=== PATIENT | male | born 1990 ===

== ENCOUNTER 2023-06-20 11:31 | Outpatient (REF) | payer MEDICAID, SELFPAY ==
[2023-06-20 13:49] LABS: MANUAL DIFF FLAG NO
[2023-06-20 13:50] LABS: Basophils Absolute Auto 0.1 X10*3/uL (0.0-0.2); Basophils Percent Auto 0.8 % (0-2); Eosinophils Absolute Auto 0.1 X10*3/uL (0.0-0.4); Hematocrit 43.6 % (42.0-52.0); Hemoglobin 15.3 g/dl (14.0-18.0); Imm Gran Abs Auto 0.01 X10*3/uL (0.00-0.03); Imm Gran Pct Auto 0.2 % (0.0-0.4); Lymphocytes Absolute Auto 2.9 X10*3/uL (1.2-4.9); Lymphocytes Percent Auto 44.2 % (20-40); Mean Corpuscular HGB Conc 35.1 g/dl (31.0-36.0); Mean Corpuscular Hemoglobin 30.1 pg (27.0-33.0); Mean Corpuscular Volume 85.7 fL (80.0-98.0); Mean Platelet Volume 10.3 fL (9.4-12.4); Monocytes Absolute Auto 0.5 X10*3/uL (0.1-1.2); Monocytes Percent Auto 8.1 % (2-11); Neutrophils Absolute Auto 2.9 x10*3/uL (2.0-8.3); Neutrophils Percent Auto 44.7 % (45-73); Platelet Count 299 X10*3/uL (160-400); Red Blood Count 5.09 X10*6/uL (4.60-5.80); Red Cell Distribution Width 12.3 % (11.0-16.0); White Blood Count 6.5 X10*3/uL (4.8-10.8)
[2023-06-20 14:44] LABS: TSH reflex Free T4 0.73 uIU/mL (0.32-4.0)
[2023-06-21 09:19] LABS: HIV AB/AG Nonreactive (Nonreactive); HIV Num 1 0.05 S/CO (0.00-0.99)
[2023-06-22 10:23] LABS: RPR Rapid Plasma Reagin NON-REACTIVE (NON-REACTIVE)
[2023-06-23 07:43] LABS: TS Negative Control Passed; TS Panel A 0; TS Panel B 0; TS Positive Control Passed; TSpotTB Negative (Negative)
== END 2023-06-20 11:32 | disposition home or self-care (01) ==
LOC: HO.HHCL 11:31
PROVIDERS: Visit Provider Internal Medicine
DX: R59.1 Generalized enlarged lymph nodes (principal)
CPT/HCPCS: 36415; 84443; 85025; 86481; 86592; 87389

== ENCOUNTER 2023-11-09 09:53 | Outpatient (REF) | payer MEDICAID, SELFPAY ==
[2023-11-09 11:38] LABS: Estimated Average Glucose 108 mg/dL; Hemoglobin A1c % 5.4 % (<6.0)
[2023-11-09 11:57] LABS: Alanine Aminotransferase 42 U/L (0-40); Albumin Level 4.5 g/dL (3.5-5.0); Alkaline Phosphatase 70 U/L (39-117); Anion Gap 11 (12-20); Aspartate Amino Transferase 33 U/L (5-37); Bilirubin Total 0.5 mg/dL (0.0-1.0); Blood Urea Nitrogen 17 mg/dL (9-16); Calcium 9.6 mg/dL (8.4-10.2); Carbon Dioxide 26 mmol/L (22-29); Chloride 107 mmol/L (96-108); Estimated Glomerular Filt Rate > 60; Glucose Random 87 mg/dL (60-115); Sodium 140 mmol/L (135-145); Total Protein 7.3 g/dL (6.5-8.0)
[2023-11-09 12:38] LABS: CT PCR NOT DETECTED (Not Detect.); NG PCR NOT DETECTED (Not Detect.)
[2023-11-10 04:33] LABS: HBc Num1 0.12 S/CO (0.00-0.79); Hepatitis B Core Antibody Nonreactive (Nonreactive); Hepatitis B Surface Antigen Negative (Negative); ~HepC Num1 0.09 S/CO (0.00-0.79); ~Hepatitis B Surface Antibody REACTIVE (Nonreactive); ~Hepatitis C Antibody Nonreactive (Nonreactive)
== END 2023-11-09 09:54 | disposition home or self-care (01) ==
LOC: HO.HHCL 09:53
PROVIDERS: Visit Provider Student in an Organized Health Care Education/Training Program
DX: Z13.89 Encounter for screening for other disorder (principal)
CPT/HCPCS: 80053; 83036; 86704; 86706; 86803; 87340; 87491; 87591

== ENCOUNTER 2024-01-19 14:18 | Outpatient (REF) | payer MEDICAID, SELFPAY | END 2024-01-19 14:19 | disposition home or self-care (01) | LOC: HO.HHCX 14:18 | PROVIDERS: Visit Provider Nurse Practitioner | DX: Z13.89 Encounter for screening for other disorder (principal) ==

== ENCOUNTER 2024-01-19 14:20 | Outpatient (REF) | payer SELFPAY ==
--- NOTE | ~2024-01-19 | XR_ITS ---
EXAMINATION: XR THORACIC SPINE CLINICAL INFORMATION: Acute left-sided back pain COMPARISON: None available. TECHNIQUE: 3 views of the thoracic spine were obtained. FINDINGS: There is no fracture or bone destruction seen and the vertebral alignment is normal. There is no disc space narrowing. There is no abnormality of the paraspinal soft tissues. XR/XR thoracic spine 2V IMPRESSION: Unremarkable examination. Electronically signed by: Tulio Sanchez DO 01/20/2024 09:58 AM [facility]
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
== END 2024-01-19 14:21 | disposition home or self-care (01) ==
LOC: HO.HHCX 14:20
PROVIDERS: Visit Provider Nurse Practitioner
DX: M54.2 Cervicalgia (principal); M54.42 Lumbago with sciatica, left side
CPT/HCPCS: 72040; 72070

== ENCOUNTER 2024-02-17 08:02 | Outpatient (REF) | payer SELFPAY | END 2024-02-17 08:03 | disposition home or self-care (01) | LOC: HO.HOSX 08:02 | DX: M25.522 Pain in left elbow (principal); R22.32 Localized swelling, mass and lump, left upper limb | CPT/HCPCS: 73080; 99212 ==

== ENCOUNTER 2024-02-17 09:03 | Outpatient (AMB) | payer MEDICAID, SELFPAY ==
--- NOTE | 2024-02-17 09:09 | MHC.OFFVIS ---
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 The patient states that when he first noticed this mass, it was very small and nonpainful, but over time it grew and gradually started to cause him discomfort, until approximately 6 months ago when he had to discontinue going to the gym due to the pain. 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 Denies any numbness or tingling in the LUE. No other acute complaints or concerns at this time. 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 Review of Systems Const All systems reviewed & are unremarkable except as noted in HPI and below Physical Exam Vital Signs: BMI result Body Mass Index 27.9 Extrem Other: On inspection, there is a focal area of enlargement on the patient's L elbow, proximal to the olecranon process No erythema or ecchymosis noted No lacerations, abrasions, open areas No evidence of infection There is a firm, slightly mobile mass noted to palpation of the patient's L arm, just proximal to the olecranon process of the L elbow Mild tenderness to palpation of this mass Patient is able to flex the elbow to approximately 140 degrees and extend to 0 degrees, but reports some discomfort when doing so Pronation and supination full and intact Results Reviewed Results Reviewed: X-rays obtained in the office today and independently reviewed by me, Abhijeet Ellison PA-C, demonstrate no fracture or acute bony abnormality of the left elbow MRI of the left elbow demonstrates hyperintense mass just dorsal and proximal to the olecranon process that is not consistent with a lipoma or simple cyst. Assessment & Plan Assessment & Plan (1) Mass of left elbow: Code(s): R22.32 - Localized swelling, mass and lump, left upper limb Category: Medical Plan 1. Mass of left elbow Present for 3 years Patient is seen and evaluated with Dr. Page, and a collaborative treatment plan was formed At this time, patient was informed that we will be reaching out to General surgery to see what their thoughts are on this mass and if a biopsy is necessary Patient was amenable to this plan We will reach out to the patient once we hear from general surgery with regards to what their thoughts are on this mass Patient is also amenable to this Orders: Orders XR elbow LT min 3V Today M25.522 - Pain in left elbow Coding Level of Care Code New Pt Level 3 (91506) Diagnoses Mass of left elbow R22.32
[2024-02-17 09:14] VITALS: BMI 27.9
== END 2024-02-17 10:15 | disposition home or self-care (01) ==
PROVIDERS: PCP Family Medicine
DX: R22.32 Localized swelling, mass and lump, left upper limb (principal)
CPT/HCPCS: 99203

== ENCOUNTER 2024-04-19 12:17 | Outpatient (AMB) | payer MEDICAID, SELFPAY ==
[2024-04-19 12:18] VITALS: BMI 27.9
--- NOTE | 2024-04-19 12:18 | A.OFFVIS_ITS ---
Vital Signs 04/19/24 12:18 Height 5 ft 9 in Weight 189 lb BMI 27.9 Intake Visit Reasons: OV-Right Elbow Mass-follow up Intake Note: Arturo is a 33 year old right hand dominant male who presents today for a follow up of a left elbow mass. Curvilinear low T1 and hyperintense T2 fat-sat signal within the cutaneous soft tissues dorsally and proximal to the olecranon is nonspecific and does not reflect simple cyst or lipoma. Measurements as above. Clinical management of this palpable abnormality is recommended. measures approximately 2.8 cm in transverse dimension and 2.1 cm in craniocaudad dimension and 4 mm in AP dimension (axial series 7, images 17 through 23). Allergies No Known Allergies [No Known Allergies*] Allergy (Unverified 02/17/24 09:17) HPI HPI OV-Right Elbow Mass-follow up: Details: Arturo comes to see me today for his LEFT elbow. His MRI report was scanned in as his right elbow but it is of his LEFT elbow. He describes discomfort with weightlifting. He states when he was doing aggressive weightlifting he had more discomfort. He does not notice some occasional swelling in the posterior aspect of his left distal triceps. The MRI report describes fluid here but is not concerning for mass or growth or extension into deeper compartments. He has full range of motion of his left elbow. He denies numbness and tingling. 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 This is not particularly tender and he has full range of motion. It is consistent with a small amount of bursal fluid. Assessment & Plan Assessment & Plan (1) Olecranon bursitis of left elbow: Code(s): M70.22 - Olecranon bursitis, left elbow Category: Medical Plan: This is nonspecific fluid on MRI that is not causing symptoms. He is a little worried about it but I reviewed the MRI with him and no intervention is warranted. He is welcome to follow up with me in a year and we can reassess or if he feels there is any change but at this time no intervention warranted. Coding Level of Care Code Est Pt Level 3 (89342) Diagnoses Olecranon bursitis of left elbow M70.22
--- OUTSIDE RECORDS SUMMARY | 2024-04-19 12:20 | XMS_ITS | Encounter Summary ---
Author Organization [employer] Address [address] [place] [address] [address] [place] [address] Care Team Providers Care Card Player Name Role Phone Mira Timmons MD Primary Care Pro vider Reason for Visit * Reason Onset Date Comments Letter for School/Work 01/20/2024 Encounter Details Date Type Department Care Team ([facility] Contact Info) Description 01/20/2024 Telephone [facility] [address], [place] [id number] Mira Timmons MD [address] [place] [address] Letter for School/Work Social History Tobacco Use Types Packs/Day Years Used Date Smoking Tobacco: Every Day Cigarettes Passive Smoke Exposure: Current Smokeless Tobacco: Never Comments:Started smoking at 12 y of age now vaping for the last year, so smoking now for 20 years , max 1 PQT a day ,now vaping 1 cartridge for 5 days Alcohol Use Standard Drinks/Week Comments Yes 0 (1 standard drink = 0.6 oz pur e alcohol) social Depression Answer Date Recorded Patient Health Questionnaire-9 Score 7 09/20/2023 Patient Health Questionnaire-9 Score 7 09/20/2023 Last PHQ-9: Questionnaire Data Not on file 0 09/20/2023 Housing Stability Answer Date Recorded What is your housing situation today? I have missy caal 09/12/[address] you li ve. Do you have problems with any of the following? None of the above 09/12/2023 Food Insecurity Answer Date Recorded Within the past 12 months, y ou worried that your food would run out before you got money to buy more: Never True 09/12/2023 Within the past 12 months,th e food you bought just didn't last and you didn't have enough money to get more: Never True 03/2023 Transportation Answer Date Recorded In the past 12 months, has l ack of transportation kept you from medical appts, meetings, work or from getting things needed for daily living? No 09/12/2023 Utilities Answer Date Recorded In the past 12 months, has t he electric, gas, oil or water company threatened to shut off services in your home? No 09/12/2023 Depression Answer Date Recorded Patient Health Questionnaire-2 Score 3 09/20/2023 Internet Access Answer Date Recorded Internet Access Q1 Yes 11/11/2023 Internet Access Q2 Not on file 11/11/2023 Sex and Gender Information Value Date Recorded Sex Assigned at Male 01/11/2022 10:17 AM EDT Legal Sex Male 10:17 AM EDT Gender Identity Male 01/11/2022 10:17 AM EDT Sexual Orientation Straight 09/20/2023 10 :36 AM EDT documented as of this encounter Miscellaneous Notes * Telephone Encounter - Padma Rosales NP - 01/20/2024 4:17 PM EST I told him he could be out of work for 1 week, so you can put return date of 01/26/24 * Telephone Encounter - Elizabeth Mullen - 01/20/2024 4:08 PM EST Tc from pt requesting excuse letter for work to be updated with an exact return date. Pt was seen yesterday 01/19/24 at [facility]. Letter had been generated. Please contact at [phone] documented in this encounter Plan of Treatment Not on file documented as of this encounter Visit Diagnoses Not on filedocumented in this encounter Additional Health Concerns Assessment Noted Time PHQ-9 Depression Total Score: 7 09/20/19 24 10:06 AM EDT documented as of this encounter Care Teams Card Player Relationship Specialty Start Date End Date Mira Timmons MD [address] [place] [id number] PCP - General Internal Medicine 06/24/22 documented as of this encounter
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
--- OUTSIDE RECORDS SUMMARY | 2024-04-19 12:20 | XMS_ITS | Data Portability ---
Author Organization [facility] [employer] [facility], , [place] Address [address] [place] [address] Assessment Encounter Date Assessment Date Assessment LastModified by Organization Details LastModified Time 03/09/2018 03/09/2018 The patient's cu rrent phase of treatment is Stabilization OUD The patient does meet diagnostic criteria for alcohol dependence. Will proceed with MAT oral naltrexone at recommended dose, see order. Referrals made today include substance abuse counselingCOUNSELED NOT TO TAKE ANY NALTREXONE RATHER TO BRING IT UNOPENED HERE AND WE'LL GIVE HIM THE FIRST DOSE. A urine drug screen is ordered, with confirmation if positive. See drug screen and medical necessity below. Initial lab studies ordered include HCG (female), CBC with differential, Comprehensive metabolic, Hepatic panel, coag, Hep B, C, and HIV. The patient accepts the suggested e-prescription of comfort medication. The patient is counseled re short term goal of harm reduction and the fci goal of abstinence. Education and counseling provided at the comprehensive addiction initial assessment included: Education re medication assisted treatment options. Education re risks and benefits of both MAT options: buprenorphine and naltrexone. If proceeding with buprenorphine, prior to induction with buprenorphine patient is to abstain from short acting opioids 12-24 hours and long acting opioids 72 hours (methadone < 30 mg/day). If proceeding with naltrexone, prior to induction with naltrexone the patient is to abstain from any opioids 7-10 days and until provider has deemed UDS appropriate to proceed. Reviewed Program Expectations at length. Education provided re best way to take medication. Patient was instructed to bring RX bottle to every visit. Education provided re common and serious side effects of buprenorphine and naltrexone. Discussed safe keeping of RX including lock box. Consents and contracts reviewed and signed with patient. Discussed rationale and requirement of psychotherapy to support recovery. Reviewed process of UDS and random visit requirements. Discussed the expectation for building trusting relationship to promote a successful recovery. Reviewed that diversion or misuse of medication will not be tolerated and is cause for dismissal from the program. Instructed to bring in counseling verification to each appointment. 91125 Medical Necessity UDS is ordered today for a routine presumptive screen. Results will be confirmed to assess those illicit substances showing positive on the presumptive screen, the substance dependency and the effectiveness of treatment. A Qualitative Urine Drug screening may include the following substances: amphetamines, benzodiazepines, buprenorphine, cocaine metabolites, ethanol, methadone, opiates, oxycodone, fentanyl and THC. This patient has an extraordinarily high pretest probability of current positive illicit substance use given the previously documented substance use pattern (see Initial visit, follow up visits and past medical/social history) in addition to a history of longstanding substance dependence. G0480 Medical Necessity Definitive/quantitati ve drug testing may be ordered due to the unexpected drug test results from the presumptive/qualitati ve drug test ordered at the patient visit. This test may include confirming the presence of an illicit substance in one or more of the following drug classes: amphetamines, benzodiazepines, buprenorphine, cocaine metabolites and opiates or for the lack of a prescribed substance. The results of the definitive test are required to assess the patient? s substance use dependency and the effectiveness of the treatment. Specimen validity testing is performed to ensure the integrity of the [place]. [place] [address] [place] [address] or negative for buprenorphine. G0481 Medical Necessity Definitive/quantitati ve drug testing may be ordered due to the unexpected drug test results from the presumptive/qualitati ve drug test ordered at the patient? s Initial or Re-Initial visit. This test may include confirming the presence of an illicit substance in one or more of the following drug classes: Opiates, Cocaine, Benzos, Amphetamines, Gabapentin, Pregabalin, Zolpidem, Tramadol, Methylphenidate or for the lack of a prescribed substance. The results of the definitive test are required to assess the patient? s substance use dependency and the effectiveness of the treatment. Specimen validity testing is performed to ensure the integrity of the sample. [place] [address] is positive for Opiates and at least one other class in combination. MONTHLY BUPRENORPHINE/NORBUPR ENORPHINE LEVEL TESTING Definitive test is performed monthly and at random to ensure the presence of the metabolite, not just buprenorphine; in addition, this patient has an extraordinarily high pretest probability of low buprenorphine levels on the analyzer results, missed visits, concern for compliance and diversion, given the previously documented substance use pattern (see Initial visit, follow up visits and past medical/social history) in addition to a history of long standing substance dependence. Specimen validity testing is performed to ensure the integrity of the sample. (Female patients) Monthly qualitative rapid urine HCG testing performed to monitor and screen for . This test is deemed medically necessary as an early identification of in this individual who has a high pretest probability of return to fertility, given the previously documented substance use pattern (see initial visit, follow up visits and past medical history). Early identification and referral for care is vital for healthier maternal and outcomes. Greater than 50% of today's visit was spent counseling and coordinating care. [email or web address] Not available 03/09/2018 16:03:43 Plan of Treatment Reminders Order Date Submit Date Provider Last Modified By Organization Details Last Modified Time Details Appointments None recorded. Lab CBC w/ diff 2017 Charlie charles [facility], [address], [address], 9 14:10:09 gamma-glut amyl transferas e (ggt), serum 2017 [facility], [address], [place], [address], 9 14:10:09 hepatic function panel, serum 2017 Charlie charles [facility], [address], [address], 9 14:10:09 hepatitis A Ab, total, serum 2017 018 charles [facility], [address], [address], 9 11:37:01 HBsAg (hepatitis B surface Ag), serum 12/2017 charles [facility], [address], [facility], [place], [address], 9 11:37:01 drug screen, urine 2017 [facility], [address] [place], [address], 8 06:56:13 HIV 1+2 Ab + HIV1 p24 Ag, QL, rapid, immunoassa y, serum or plasma or blood 2017 [place] [address] [facility], [address], [facility], [place], [address], 9 17:00:25 hepatitis C RNA, viral load, PCR, serum 2017 [place] [address] [facility], [address], [facility], [place], [address], 9 17:00:26 Referral None recorded. Procedures None recorded. Surgeries None recorded. Imaging None recorded. Medication Orders naltrexone 50 mg tablet 2017 INTERFACE [id number], [address] [place], [address], 8 15:59:19 Patient TargetsNo targets recorded. Patient Instructions Encounter Date Encounter Id Patient Instructions Last Modified By Organization Details Last Modified Time 03/09/2018 [id number] Abstain from opiates for 24 hours unless directed by provider; If already taking buprenorphine, do not take a dose the day of the induction until you are in the office with your provider; Comfort medications were recommended. If accepted, please take as prescribed to support your ability to abstain from opiates until your buprenorphine induction; Keep your buprenorphine RX package closed until you are seen by your provider for induction unless otherwise directed; If you have problems abstaining from opiates, please call the office. As part of your individualized treatment plan and program requirement, you will need to bring your correct prescription bottle and all used and unused medication and counseling verification to each appointment; agree to participate in counseling and bring counseling verification to each appointment; Agree to present for random visits and agree to not falsify your urine specimens. [email or web address] Not available 03/09/2018 15:22:05 Education provid ed at today's visit included: Review of patient's individualized treatment plan; Review of program policies: RX, visit, counseling and DATA compliance; Review medication administration technique; Discussion proper care of medication/safety/ lock box; Counseling re: trigger avoidance, relapse prevention and the importance of developing a sober network; Counseling re safe sex and control; Review risk of BZD and BUP, as well as ETOH; Counseling re: Discovery & Drop out prevention in early recovery. Greater than 50% of today's visit spent face to face counseling and coordinating care. [email or web address] Not available 03/09/2018 15:22:05 Reason for Referral None Reported. Results Created Date Observation Date Name Description Value Unit Range Abnormal Flag Note LastModifiedBy Organization Detail LastModifiedTime 03/09/20 18 03/09/2018 drug scree n, urine amphetamine Negati ve NG/mL 1,000 Elect agustin arciniega d by TIFFANIE Shields Not Available [place], [address], 03/13/2018 06:56:13 03/09/20 18 03/09/2018 drug scree n, urine benzodiazepi ne Negati ve NG/mL 200 Not Available [employer] [facility] [place] [address] [place], [address], 03/13/2018 06:56:13 03/09/20 18 03/09/2018 drug scree n, urine buprenorphin e Negati ve NG/mL 5 abnormal Refer red for confi rmati on Not Available [place], [address], 03/13/2018 06:56:13 03/09/20 18 03/09/2018 drug scree n, urine cannabinoid Positi ve NG/mL 50 high Not Available [employer] [place] [address] [place], [address], 03/13/2018 06:56:13 03/09/20 18 03/09/2018 drug scree n, urine cocaine metab. Positi ve NG/mL 300 high Not Available [place] [address] [place], [address], 03/13/2018 06:56:13 03/09/20 18 03/09/2018 drug scree n, urine cocaine Referr ed for confir mation Not Available [place] [address] [place], [address], 03/13/2018 06:56:13 03/09/20 18 03/09/2018 drug scree n, urine methadone Negati ve NG/mL 300 Not Available [place] [address] [place], [address], 03/13/2018 06:56:13 03/09/20 18 03/09/2018 drug scree n, urine opiates Negati ve NG/mL 300 Not Available [place] [address] [place], [address], 03/13/2018 06:56:13 03/09/20 18 03/09/2018 drug scree n, urine oxycodone Negati ve NG/mL 300 Not Available [place] [address] [place], [address], 03/13/2018 06:56:13 03/09/20 18 03/09/2018 drug scree n, urine ethanol Negati ve NG/mL 100 Not Available [place] [address] [place], [address], 03/13/2018 06:56:13 03/09/20 18 03/09/2018 speci men valid ity testi ng creatinine 340.9 mg/dL >20 Sofi hurtado by TIFFANIE Shields Not Available [place] [address] [place], [address], 03/15/2018 10:04:43 03/09/20 18 03/09/2018 speci men valid ity testi ng specific gravity 1.051 1.003- 1.035 high Not Available [place] [address] [place], [address], 03/15/2018 10:04:43 03/09/20 18 03/09/2018 speci men valid ity testi ng oxidant 19 ug/mL <200 Not Available [place] [address] [place], [address], 03/15/2018 10:04:43 03/09/20 18 03/09/2018 speci men valid ity testi ng pH 5.62 4.7-7. 8 Not Available [place] [address] [place], [address], 03/15/2018 10:04:43 03/09/20 18 03/09/2018 drug scree n, 14 drugs (dete ctime d), urine heroin 0, N/F NG/mL 10 Elect ron brandy demian d by TIFFANIE Shields Not Available [place] [address] [place], [address], 03/16/2018 14:26:05 03/09/20 18 03/09/2018 drug scree n, 14 drugs (dete ctime d), urine clonazepam 108 NG/mL 25 high Not Available [place] [address] [place], [address], 03/16/2018 14:26:05 03/09/20 18 03/09/2018 drug scree n, 14 drugs (dete ctime d), urine alprazolam 0, N/F NG/mL 25 Not Available [place] [address] [place], [address], 03/16/2018 14:26:05 03/09/20 18 03/09/2018 drug scree n, 14 drugs (dete ctime d), urine ampehetamine 0, N/F NG/mL 250 Not Available [place] [address] [place], [address], 03/16/2018 14:26:05 03/09/20 18 03/09/2018 drug scree n, 14 drugs (dete ctime d), [place] in[place] [address] NG/mL 100 high Not Available [place] [address] [place], [address], 03/16/2018 14:26:05 03/09/20 18 03/09/2018 drug scree n, 14 drugs (dete ctime d), urine buprenorphin e Abnorm al, 2 NG/mL 20 Not Available [place] [address] [place], [address], 03/16/2018 14:26:05 03/09/20 18 03/09/2018 drug scree n, 14 drugs (dete ctime d), urine codeine 0, N/F NG/mL 50 Not Available [facility] [address] [place], [address], 03/16/2018 14:26:05 03/09/20 18 03/09/2018 drug scree n, 14 drugs (dete ctime d), urine diazepam 0, N/F NG/mL 50 Not Available [place], [address], 03/16/2018 14:26:05 03/09/20 18 03/09/2018 drug scree n, 14 drugs (dete ctime d), urine methadone metab 0, N/F NG/mL 100 Not Available [place] [address] [place], [address], 03/16/2018 14:26:05 03/09/20 18 03/09/2018 drug scree n, 14 drugs (dete ctime d), urine fentanyl 0, N/F NG/mL 50 Not Available [facility] [address] [place], [address], 03/16/2018 14:26:05 03/09/20 18 03/09/2018 drug scree n, 14 drugs (dete ctime d), urine hydrocodone 0, N/F NG/mL 50 Not Available [place] [address] [place], [address], 03/16/2018 14:26:05 03/09/20 18 03/09/2018 drug scree n, 14 drugs (dete ctime d), urine hydromorphon e 0, N/F NG/mL 50 Not Available [place] [address] [place], [address], 03/16/2018 14:26:05 03/09/20 18 03/09/2018 drug scree n, 14 drugs (dete ctime d), urine lorazepam 0, N/F NG/mL 50 Not Available [place] [address] [place], [address], 03/16/2018 14:26:05 03/09/20 18 03/09/2018 drug scree n, 14 drugs (dete ctime d), urine mda 0, N/F NG/mL 250 Not Available [place] [address] [place], [address], 03/16/2018 14:26:05 03/09/20 18 03/09/2018 drug scree n, 14 drugs (dete ctime d), urine methadone 0, N/F NG/mL 250 Not Available [place] [address] [place], [address], 03/16/2018 14:26:05 03/09/20 18 03/09/2018 drug scree n, 14 drugs (dete ctime d), urine methamphetam ine 0, N/F NG/mL 250 Not Available [place] [address] [place], [address], 03/16/2018 14:26:05 03/09/20 18 03/09/2018 drug scree n, 14 drugs (dete ctime d), urine morphine 0, N/F NG/mL 50 Not Available [place] [address] [place], [address], 03/16/2018 14:26:05 03/09/20 18 03/09/2018 drug scree n, 14 drugs (dete ctime d), urine norbuprenorp hemal N/F NG/mL 50 Not Available [place] [address] [place], [address], 03/16/2018 14:26:05 03/09/20 18 03/09/2018 drug scree n, 14 drugs (dete ctime d), urine nordiazepam 0, N/F NG/mL 50 Not Available [place] [address] [place], [address], 03/16/2018 14:26:05 03/09/20 18 03/09/2018 drug scree n, 14 drugs (dete ctime d), urine norfentanyl 0, N/F NG/mL 50 Not Available [place] [address] [place], [address], 03/16/2018 14:26:05 03/09/20 18 03/09/2018 drug scree n, 14 drugs (dete ctime d), urine norhydrocodo ne 0, N/F NG/mL 100 Not Available [place] [address] [place], [address], 03/16/2018 14:26:05 03/09/20 18 03/09/2018 drug scree n, 14 drugs (dete ctime d), urine normeperidin e 0, N/F NG/mL 100 Not Available [place] [address] [place], [address], 03/16/2018 14:26:05 03/09/20 18 03/09/2018 drug scree n, 14 drugs (dete ctime d), urine noroxycodone 0, N/F NG/mL 50 Not Available [place] [address] [place], [address], 03/16/2018 14:26:05 03/09/20 18 03/09/2018 drug scree n, 14 drugs (dete ctime d), urine oxycodone 0, N/F NG/mL 25 Not Available [facility] [address] [place], [address], 03/16/2018 14:26:05 03/09/20 18 03/09/2018 drug scree n, 14 drugs (dete ctime d), urine oxymorphone 0, N/F NG/mL 100 Not Available [place] [address] [place], [address], 03/16/2018 14:26:05 03/09/20 18 03/09/2018 drug scree n, 14 drugs (dete ctime d), urine pcp 0, N/F NG/mL 50 Not Available [facility] [address] [place], [address], 03/16/2018 14:26:05 03/09/20 18 03/09/2018 drug scree n, 14 drugs (dete ctime d), urine temazepam 0, N/F NG/mL 50 Not Available [facility] [address] [place], [address], 03/16/2018 14:26:05 03/09/20 18 03/09/2018 drug scree n, 14 drugs (dete ctime d), urine tramadol 0, N/F NG/mL 100 [facility] [address] [place], [address], 03/16/2018 14:26:05 03/09/20 18 03/09/2018 speci men valid ity testi ng creatinine 340.9 mg/dL >20 Elect agustin arciniega d by TIFFANIE Shields Not Available [place] [address] [place], [address], 03/16/2018 14:26:06 03/09/20 18 03/09/2018 speci men valid ity testi ng specific gravity 1.051 1.003- 1.035 high Not Available [place] [address] [place], [address], 03/16/2018 14:26:06 03/09/20 18 03/09/2018 speci men valid ity testi ng oxidant 19 ug/mL <200 Not Available [facility] [address] [place], [address], 03/16/2018 14:26:06 03/09/20 18 03/09/2018 speci men valid ity testi ng pH 5.62 4.7-7. 8 Not Available [place] [address] [place], [address], 03/16/2018 14:26:06 Result Notes None recorded. Medical Equipment None Reported. Medications Name Sig Start Date Stop Date Status Note LastModified by Organization Details LastModified Time naltrexone 50 mg tablet Take 1 tablet every day by oral route before meals for 30 days. 018 active Not Available Not Available Not Avai lable Vitals Date Recorded Body temperature Oxygen saturation Oxygen saturation in Arterial blood by Pulse oximetry Heart rate Systolic blood pressure Diastolic blood pressure Provider Name and Address Organization Details Last Updated DateTime 8 97.7 [degF] 97 % 97 % 77 /min 146 mm[Hg] 100 mm[Hg] Karin Randolph [facility] [employer] [facility] 8 15:27:48 Social History None recorded. Functional Status None recorded. Mental Status None recorded. Family History Nothing Reported. Medical History No medical history recorded. Past Encounters Encounter ID Performer Location Encounter Start Date Encounter Closed Date Diagnosis/Indication Diagnosis SNOMED-CT Code Diagnosis ICD10 Code Diagnosis Note [id number] Isaac Colmenares DO [place] [address] [place], [place] [id number] 03/09/2018 15:09:28 03/09/2018 16:04:48 Opioid dependence 98374962 F11.20 Alcohol dependence 77720 003 F10.20 Health Concerns Section Related Observation LastModified by Organization Detai ls LastModified Time None Recorded Concern Status LastModified by Organization Details LastModified Time None Recorded Advance Directives Directive None Recorded Payers Encounter Date Sequence Insurance Name Policy Number Policy Waters Covered Member ID Waters Member ID Guarantor Name 03/09/2018 1 [place] [facility] Arturo Thomas [id number] Arturo Thomas Notes Date Note Type Note Provider Name and Address Organization Details Recorded Time 03/09/2018 text/html The patient presents today seeking outpatient treatment for {{opiate alcohol* bot h opiate and alcohol}} dependence. ARTURO SAYS HE DID GO TO A METHADONE CLINIC IN 2010 TO HELP HIM STOP ABUSING OXYCODONE WHICH HE BECAME DEPENDENT ON WHEN HE WAS TX'D FOR A HEAD INJURY AND THAT HE'S NEVER SNORTED OR INJECTED HEROIN. ARTURO ALSO SAYS THAT IT'S BEEN 7 YEARS SINCE HE ABUSED OXYCODONE. HE WANTS HELP WITH ALCOHOL ABUSE. ALSO ABUSES COCAINE AND ARTURO UNDERSTANDS THAT WE DON'T HAVE A DRUG TO HELP WITH HIS CRAVINGS FOR COCAINE BUT HE WANTS SOMETHING TO HELP HIS WITH ALCOHOL ABUSE. HE ADMITS TO AVERAGING ONE SIX PACK AND 3-4 NIPS (HENNESEY, BICARDI) EVERY DAY. YESTERDAY HE HAD 3 BEERS AND SIX NIPS. Current readiness for treatment/stage of change is described as {{ pre-contemplation con templation* preparati on action maintenance }}. Onset substance dependence, beginning with first substance used and all illicit and/or prescription abuse to date and including current substances: ABUSING ALCOHOL ABOUT 5 YEARS Attempts to stop including past and/or most recent Inpatient detox: NONE Residential and/or Sober Housing: NONE Periods of sobriety during incarceration: LONGEST SOBER PERIOD 2-3 WEEKS A FEW MONTHS AGO Intensive Outpatient Program: NONE Partial Hospitalization Program: NONE Medication assisted treatment program(s): NONE Most successful program to date has been {{NEVER BEEN IN A PROGRAM# none methado ne/OTP inpatient residential sober living buprenorphine bup+residential Vivit rol Vivitrol+resident ial incarceration}}. The patient {{DENIES# denies repo rts}} a History of IV drug use. ALCOHOL ABUSE NOT OPIOIDS The patient {{denies* reports}} a history of overdose. The patient {{denies* reports}} a history of witnessing an overdose. The patient {{denies reports*}} having ever used or been prescribed Methadone. The patient's last exposure to Methadone was {{DATE 03/20/2011}}. Patient reports successfully getting off Methadone 7 years ago and the purpose of today's visit is to treat his alcoholism. He denies using or abusing opioids rather he's here for treatment of alcohol abuse. The patient {{denies* reports}} having ever used or been prescribed Buprenorphine. . Prescription monitoring program not applicable because he's presenting for treatment of alcohol abuse. Isaac Colmenares, DO [address] [place] [address], [phone], [facility] [employer] [facility], 03/20/2018 20:00:54
--- OUTSIDE RECORDS SUMMARY | 2024-04-19 12:20 | XMS_ITS | Encounter Summary ---
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 pt states was seen by [facility] Ortho back in February due to left elbow pain, swelling and radiation into the left hand. pt had XRAYS and an MRI done but has not heard anything as yet. pt has not followed up with Ortho and has not had follow up scheduled. pt reports pain is getting worse and wants to know the plan going forward. pt 's PCP is on FMLA at this time. advised pt to call Ortho at [facility] and request follow up appt for further recommendations. pt understands and agrees with plan. insurance verified. Protocol Used: Elbow Pain (Adult) Protocol-Based Disposition: Home Care Positive Triage Question: * Elbow pain * All higher-acuity triage questions were negative Care Advice Discussed: * Reassurance and Education - Elbow Pain * Pain Medicines * Reasons To Call Back - You become worse * Telephone Encounter - Candice Mondragon - 03/22/2024 11:48 AM EST Symptom: Skin Lump Outcome: Schedule an urgent appointment (within 4 hours) or talk to a nurse or provider soon Reason: Red and larger than 1 inch The caller accepted this outcome. documented in this encounter Plan of Treatment Not on file documented as of this encounter Visit Diagnoses Not on filedocumented in this encounter Additional Health Concerns Assessment Noted Time PHQ-9 Depression Total Score: 7 09/20/19 24 10:06 AM EDT documented as of this encounter Care Teams Wash Mill Operator Relationship Specialty Start Date End Date Mira Timmons MD [address] [place] [phone] PCP - General Internal Medicine 06/24/22 documented as of this encounter
--- OUTSIDE RECORDS SUMMARY | 2024-04-19 12:20 | XMS_ITS | Encounter Summary ---
Author Organization [employer] Address [address] [place] [address] 7 [place] [address] Care Team Providers Care Photo Editor Name Role Phone Mira Timmons MD Primary Care Pro vider Reason for Visit * Reason Onset Date Comments Nurse Triage 02/13/2024 Encounter Details Date Type Department Care Team ([facility] st Contact Info) Description 02/13/2024 Telephone [facility] MED[facility]INE [address] [place], [place] [phone] Mira Timmons MD [address] [place] [address] Nurse Triage Social History Tobacco Use Types [...] encounter Miscellaneous Notes * Telephone Encounter - Keily Castro RN - 02/13/2024 10:49 AM EST Triage call Pt reports nasal drainage (clear), congestion, right sided headache. Neg for facial swelling, eye redness. Pt does report fever 2 nights ago. Pt has had these symptoms for 2 weeks now andhas started a new job so hasn't been able to call for assist. Pt is given ASK apt with PCP 02/14/24 @ 900am. Pt agrees with disposition. Pt insurance is verified as active prior to booking. Protocol Used: Sinus Pain or Congestion (Adult) Protocol-Based Disposition: See in Office or Video Visit Today or Tomorrow Video visit not offered Positive Triage Questions: * Sinus congestion (pressure, fullness) present > 10 days * Nasal discharge present > 10 days * Patient wants to be seen * All higher-acuity triage questions were negative Care Advice Discussed: * Reassurance and Education - Colds and Sinus Congestion * For a Runny Nose - Blow Your Nose * Hydration * Expected Course * Reasons To Call Back - Severe pain lasts over 2 hours after pain medicine - Sinus pain lasts over 1 day after using nasal washes - Sinus congestion (fullness) lasts over 10 days - Fever lasts over 3 days - You become worse * Telephone Encounter - Constance Suzanne - 02/13/2024 10:32 AM EST Symptom: Sinus Symptoms Outcome: Schedule an urgent appointment (within 1 hour) or talk to a nurse or provider soon Reason:headache The caller accepted this outcome. documented in this encounter Plan of Treatment Not on file documented as of this encounter Visit Diagnoses Not on filedocumented in this encounter Additional Health Concerns Assessment Noted Time PHQ-9 Depression Total Score: 7 09/20/19 24 10:06 AM EDT documented as of this encounter Care Teams Photo Editor Relationship Specialty Start Date End Date Mira Timmons MD [address] [place] [id number] PCP - General Internal Medicine 06/24/22 documented as of this encounter
--- OUTSIDE RECORDS SUMMARY | 2024-04-19 12:20 | XMS_ITS | Clinical Summary ---
Author Organization [facility] Address [address] [place] [phone] Phone Care Team Providers Care Health Informatics Advisor Name Role Phone Physician, Pcp Unknown Primary Care Provider Thelma vailable Allergies No known active allergies Medications No known medications Active Problems No known active problems Social History Tobacco Use Types Packs/Day Years Used Date Smoking Tobacco: Never Assessed Sex and Gender Information Value Date Recorded Sex Assigned at Not on file Gender Identity Not on file Sexual Orientation Not on file Job Start Date Occupation Industry Not on file Not on file Not on file Obstetrics History Last Filed Vital Signs Vital Sign Reading Time Taken Comments Blood Pressure 116/72 01/17/2024 7:50 PM EST Pulse 52 01/17/2024 7:50 PM EST Temperature 36.1 ??C (97 ??F) 01/17/2024 7:50 PM EST Respiratory Rate 20 01/17/2024 7:50 PM EST Oxygen Saturation 97% 01/17/2024 7:50 PM EST Inhaled Oxygen Concentration - - Weight 90.7 kg (200 lb) 01/17/2024 4:57 PM EST Height 175.3 cm (5' 9 ) 01/17/2024 4:57 PM EST Body Mass Index 29.53 01/17/2024 4:57 PM EST Plan of Treatment Health Maintenance Due Date Last Done Comments HPV Vaccines (2 - Male 3-dose series) 08/20/2009 07/23/2009 Hepatitis A Vaccines (1 of 2 - Risk 2-dose series) 2009 Cholesterol Screening (Lipid Panel) 02/14/2022 Social Influencers of Health Screening 02/14/2022 Influenza Vaccine (#1) 2023 3, 01/28/2011, 01/02/2008 COVID-19 Vaccine ( season) 2023 09/20/2023, 12/29/2020 Depression Screening 09/19/2024 09/20/2023 DTaP,Tdap,and Td Vaccines (9 - Td or Tdap) 09/19/2033 09/20/2023, 06/30/2012, 04/09/2009, Additional history exists MMR Vaccines Completed 07/12/1993, 03/14/1992 Hepatitis B Vaccines Completed 01/12/1995, 09/11/1994, 07/12/1994 HIB Vaccines Completed 10/13/1995, 03/1990, 1990 IPV Vaccines Completed 10/13/1995, 03/1994, 02/11/1991, Additional history exists Varicella Vaccines Aged Out 05/08/2003 No longer eligible based on patient's age to complete this topic HIV Screening Completed 06/20/2023 Hepatitis C Screening Completed 11/09/2023 Meningococcal ACWY Vaccine Aged Out N o longer eligible based on patient's age to complete this topic Pneumococcal Vaccine: Pediatrics (0 to 5 Years) and At-Risk Patients (6 to 64 Years) Aged Out No longer eligible based on patient's age to complete this topic RSV Immunization Patients Under 20 months Aged Out No longer eligible based on patient's age to complete this topic Care Teams Health Informatics Advisor Relationship Specialty Start Date End Date Physician, Pcp Unknown PCP - General 01/17/24
--- OUTSIDE RECORDS SUMMARY | 2024-04-19 12:20 | XMS_ITS | Data Portability ---
Author Organization [facility] [employer], [address] Address [address] [place] [address] Assessment No assessment recorded. Plan of Treatment Reminders Order Date Submit Date Provider Last Modified By Organization Details Last Modified Time Details Appointments None record ed. Lab None record ed. Referral None record ed. Procedures None record ed. Surgeries None record ed. Imaging None record ed. Medication Orders None record ed. Patient TargetsNo targets recorded. Patient InstructionsNo instructions recorded. Reason for Referral None Reported. Procedures Surgical History Date Name Laterality Status Provider Name and Address Organization Details Recorded Time OC-UDS Rapid 5 or 10 panel Template completed JIMMY Greenberg [employer] 02/12/2022 12:44:29 Imaging Results None recorded. Procedure Notes None recorded. Medical Equipment None Reported. Medications Name Sig Start Date Stop Date Status Note LastModified by Organization Details LastModified Time amitriptyline 10 mg tablet TAKE 1 TABLET BY MOUTH EVERYDAY AT BEDTIME active Not Available Not Available No t Available docusate sodium 100 mg capsule TAKE 1 CAPSULE BY MOUTH TWICE A DAY NEEDED active Not Available Not Available No t Available omeprazole 20 mg capsule,delaye d release TAKE 1 CAPSULE BY MOUTH EVERY DAY BEFORE A MEAL active Not Available Not Available No t Available fluticasone propionate 50 mcg/actuation nasal spray,suspensi on SPRAY 1 SPRAY INTO EACH NOSTRIL EVERY DAY active Not Available Not Available No t Available loratadine 10 mg tablet TAKE 1 TABLET BY MOUTH EVERY DAY active Not Available Not Available No t Available Saline Nasal 0.65 % spray aerosol SPRAY INTO EACH NOSTRIL 2 TIMES A DAY NEEDED active Not Available Not Available No t Available Vitals None Recorded Social History None recorded. Functional Status None recorded. Mental Status None recorded. Family History Nothing Reported. Medical History No medical history recorded. Past Encounters Encounter ID Performer Location Encounter Start Date Encounter Closed Date Diagnosis/Indication Diagnosis SNOMED-CT Code Diagnosis ICD10 Code Diagnosis Note [id number] [place] [address] 01/08/2021 08:59:37 01/08/2021 10:46:31 [id number] [facility] [address] [place] [address] 09/07/2018 17:27:55 09/07/2018 18:14:03 [id number] BANDAR EDUARDO [facility] [id number] [place] [address] 02/12/2022 11:35:39 02/12/2022 12:56:35 Drug of abuse screen 63659157 Z02.83 Health Concerns Section Related Observation LastModified by Organization Detai ls LastModified Time None Recorded Concern Status LastModified by Organization Details LastModified Time None Recorded Advance Directives Directive None Recorded Payers Encounter Date Sequence Insurance Name Policy Number Policy Waters Covered Member ID Waters Member ID Guarantor Name 02/12/2022 [employer] OTHER En jesus alberto Thomas
--- OUTSIDE RECORDS SUMMARY | 2024-04-19 12:20 | XMS_ITS | Encounter Summary ---
Author Organization [employer] Address [address] [place] [address] [address] [place] [address] Care Team Providers Care Nurseryperson Name Role Phone Mira Timmons MD Primary Care Pro vider Reason for Visit * Reason Comments Med Refill Encounter Details Date Type Department Care Team (Late st Contact Info) Description 03/18/2024 Refill [facility] [address] [place], [place] [phone] Padma Rosales NP [address] [place] [address] Neck pain Social History Tobacco Use Types Packs/Day Years [...] AM EDT documented as of this encounter Plan of Treatment Not on file documented as of this encounter Visit Diagnoses Diagnosis Neck pain Cervicalgia documented in this encounter Additional Health Concerns Assessment Noted Time PHQ-9 Depression Total Score: 7 09/20/19 24 10:06 AM EDT documented as of this encounter Care Teams Nurseryperson Relationship Specialty Start Date End Date Mira Timmons MD [address] [place] [phone] PCP - General Internal Medicine 06/24/22 documented as of this encounter
== END 2024-04-19 13:26 | disposition home or self-care (01) ==
PROVIDERS: PCP Family Medicine; Visit Provider Orthopaedic Surgery
DX: M70.22 Olecranon bursitis, left elbow (principal)
CPT/HCPCS: 99213

== ENCOUNTER → 2024-04-19 12:17 | Outpatient (BNVA) | payer MEDICAID, SELFPAY | PROVIDERS: PCP Family Medicine; Visit Provider Orthopaedic Surgery | DX: M70.22 Olecranon bursitis, left elbow (principal) | CPT/HCPCS: 99212 ==

== ENCOUNTER 2024-10-26 16:49 | Outpatient (REF) | payer MEDICAID, SELFPAY ==
--- OUTSIDE RECORDS SUMMARY | 2024-10-26 16:52 | XMS_ITS | Clinical Summary ---
Author Organization [facility] [employer] Address [address] [place] [address] 7 [place] [address] Care Team Providers Care Education Program Specialist Name Role Phone Mira Timmons MD Primary Care Pro vider Allergies No known active allergies Medications * This document contains information received from the source organization and may not represent a complete record from that organization. Suboxone 12-3 MG per sublingual film TAKE 1 FILM SUBLINGUALLY EVERY DAY 09/06/19 24 Active hydrocortison e (Anusol-HC) 2.5 % rectal cream Insert into the rectum 2 times daily. 28 g 09/20/19 24 Active lidocaine (Lidoderm) 5 % patchIndicati ons:Neck pain,Acute bilateral low back pain with left-sided sciatica Apply 1 patch topically Once per day. Remove & discard patch within 12 hours or as directed by MD. 30 patch 1 01/19/20 24 Active nicotine (Nicoderm CQ) 14 MG/24HR patch Place 1 patch on the skin 1 (one) time each day at the same time. 42 patch 1 02/14/20 24 Active sodium chloride ([place]) 0.65 % nasal spray Administer 1 spray into each nostril if needed for congestion or rhinitis. 15 mL 2 02/14/20 24 025 Active Diclofenac Sodium 1 % gelIndication s:Neck pain APPLY 1 G TOPICALLY IN THE MORNING, AT NOON, AND AT BEDTIME NEEDED FOR PAIN 100 g 1 05/30/19 25 Active nicotine (Nicoderm, Step 1) 21 MG/24HR patchIndicati ons:Nicotine Dependence Place 1 patch on the skin 1 (one) time each day at the same time. 30 patch 1 10/27/19 25 Active nicotine polacrilex (Commit) 4 MG lozenge Dissolve 1 lozenge (4 mg) in the mouth every 2 (two) hours if needed for smoking cessation. 100 lozenge 1 10/27/19 25 025 Active docusate sodium (Colace) 100 MG capsule Take 1 tab po bid prn constipation 60 capsule 3 10/27/19 25 Active polyethylene glycol, PEG, 3350 (MiraLax) 17 GM/SCOOP powder Take 17 g by mouth if needed each day (constipation). 527 g 10/27/19 25 025 Active psyllium (Metamucil Smooth Texture) 58.6 % powder Take 5.12 g (3 g of fiber) by mouth 2 times daily. 283 g 3 10/27/19 25 026 Active nicotine polacrilex (Nicotine Mini) 2 MG lozenge Dissolve 1 lozenge (2 mg) in the mouth every 2 (two) hours if needed for smoking cessation. 100 lozenge 1 02/14/20 24 025 Discontinued(O ther) docusate sodium (Colace) 100 MG capsule Take 1 tab po bid prn constipation 60 capsule 3 02/14/20 24 025 Discontinued(R eorder (will not trigger notification to Pharmacy)) psyllium (Metamucil Smooth Texture) 58.6 % powder Take 5.12 g (3 g of fiber) by mouth 2 times daily. 283 g 3 02/14/20 24 025 Discontinued(R eorder (will not trigger notification to Pharmacy)) Active Problems Problem Noted Date Diagnosed Date Neck pain 03/23/2024 Left elbow pain 09/20/2023 BRBPR (bright red blood per rectum) 09/20/2023 Constipation 09/20/2023 Overweight 09/20/2023 Poor concentration 09/20/2023 Health care maintenance 09/20/2023 Anxiety 08/31/2012 Tobacco dependence syndrome 08/31/2012 Resolved Problems Problem Noted Date Diagnosed Date Resolved Date Cocaine dependence without complication 03/19/2022 02/14/2024 Encounters Date Type Department Care Team Description 10/26/2024 9:30 AM EDT Office Visit [facility] [address] [place] [phone] Mira Timmons MD Health care maintenance (Primary Dx) 10/26/2024 Travel 10/25/2024 Telephone [facility] [address] [place] [address] Mira Timmons MD Chart Prep 10/19/2024 Patient Outreach [facility] [address] [place] [address] Mira Timmons MD Pre-visit Planning ((Unable to reach for PVP screening and or LVM) to be completed in office) from Last 3 Months Immunizations Immunization Administration Dates Next Due DTaP 01/26/2001, 6,06/12/1994,1991,02/11/1991,1990 HPV 9-Valent 2023 HPV, Quadrivalent 07/23/2009 Hep B, Adolescent or Pediatric 01/12/1995,1994,07/12/1994 Hib ([facility]) 10/13/1995,02/11/1991,1990 IPV 10/13/1995, 5,02/11/1991,1990 Influenza, IIV3, injectable [...] Answer Date Recorded Patient Health Questionnaire-9 Score 0 10/26/2024 Patient Health Questionnaire-9 Score 0 10/26/2024 Last PHQ-9: Questionnaire Data Not on file 0 10/26/2024 Housing Stability Answer Date Recorded What is your housing situation today? I have missy caal 10/26/[address] you li ve. Do you have problems with any of the following? None of the above 10/26/2024 Food Insecurity Answer Date Recorded Within the past 12 months, y ou worried that your food would run out before you got money to buy more: Never True 10/26/2024 Within the past 12 months,th e food you bought just didn't last and you didn't have enough money to get more: Never True Transportation Answer Date Recorded In the past 12 months, has l ack of transportation kept you from medical appts, meetings, work or from getting things needed for daily living? No 10/26/2024 Utilities Answer Date Recorded In the past 12 months, has t he electric, gas, oil or water company threatened to shut off services in your home? No 10/26/2024 Depression Answer Date Recorded Patient Health Questionnaire-2 Score 0 10/26/2024 Internet Access Answer Date Recorded Internet Access Q1 Yes 10/26/2024 Internet Access Q2 Not on file 10/26/2024 Sex and Gender Information Value Date Recorded Sex Assigned at Male 01/11/2022 10:17 AM EDT Legal Sex Male 10:17 AM EDT Gender Identity Male 01/11/2022 10:17 AM EDT Sexual Orientation Straight 09/20/2023 10 :36 AM EDT Last Filed Vital Signs Vital Sign Reading Time Taken Comments Blood Pressure 130/82 10/26/2024 9:15 AM EDT Pulse 84 10/26/2024 9:15 AM EDT Temperature 36.3 C (97.3 F) 10/26/2024 9:15 AM EDT Respiratory Rate 20 10/26/2024 9:15 AM EDT Oxygen Saturation 98% 10/26/2024 9:15 AM EDT Inhaled Oxygen Concentration - - Weight 97.5 kg (215 lb) 10/26/2024 9:15 AM EDT Height 175.3 cm (5' 9 ) 10/26/2024 9:15 AM EDT Body Mass Index 31.75 10/26/2024 9:15 AM EDT Plan of Treatment Upcoming Encounters Date Type Department Care Team (Late st Contact Info) Description 11/14/2024 10:45 AM EDT Office Visit [facility] [address] [place], [place] [phone] Mira Timmons MD [address] [place] [address] Health Maintenance Due Date Last Done Comments Lipid Panel 1990 Family Planning (PISQ) 2005 Pneumococcal Vaccine: Pediatrics (0 to 5 Years) and At-Risk Patients (6 to 49) Years (1 of 2 - PCV) 2009 HPV Vaccines (3 - Male 3-dose series) 02/02/2024 2023, 07/23/2009 Influenza Vaccine (#1) 2024 , 02/22/2013, 01/28/2011, Additional history exists Alcohol/Substance Use Screening 10/26/2025 10/26/2024 Depression Screening 10/26/2025 10/26/2024, 10/27/19 25 Disability Screening 10/26/2025 10/26/2024 SDOH Screening 10/26/2025 10/26/2024 Tobacco Screening 10/26/2025 10/26/2024 DTaP/Tdap/Td Vaccines (9 - Td or Tdap) [...] 11/09/2023 COVID-19 Vaccine Completed 02/14/2024, 11/2023, 12/29/2020 Hepatitis A Vaccines Aged Out No long er eligible based on patient's age to complete this topic Meningococcal B Vaccine Aged Out No l onger eligible based on patient's age to complete this topic Meningococcal Vaccine Aged Out No shellie cornelio eligible based on patient's age to complete this topic RSV under 20 months Aged Out No longe r eligible based on patient's age to complete this topic Rotavirus Vaccines Aged Out No longer eligible based on patient's age to complete this topic Procedures Procedure Name Priority Date/Time Associated Diagnosis Comments HEPATITIS C AB W/REFL TO HCV RNA, QN, PCR Routine 11/09/2023 10:10 AM EDT Annual physical exam HIV 1/2 ANTIGEN/ANTIBODY, FOURTH GENERATION W/RFL Routine 06/20/2023 11:34 AM EDT Lymphadenopathy of head and neck from Last 3 Months or Most Recently Relevant to Health Maintenance Results * Hepatitis C Antibody with Reflex to HCV, RNA, Quantitative, Real-Time PCR (11/09/2023 10:10 AM EDT) Hepatitis C Antibody Nonreactive Nonreactive [facility] Comment:Antibodies to HCV no t detected; does not exclude early acuteHCV infection. Blood Venous blood specimen / Unknown 11/09/2023 10:10 AM EDT 11/09/2023 11:04 AM EDT us Mira Britton MD LAB BLOOD ORDERAB LES Final Result [facility] [address] [place] [phone] * HIV-1/2 Antigen and Antibodies, Fourth Generation, with Reflexes (06/20/2023 11:34 AM EDT) HIV AB/AG Nonreactive Nonreactive [facility] Comment:HIV-1 p24 Ag and/or HIV-1/HIV-2 Ab not detected.A test result that is nonreactive does not exclude thepossibility of exposure to or infection with HIV-1 and/orHIV-2. Nonreactive results in this assay for individualswith prior exposure to HIV-1 and/or HIV-2 may be due toantigen and antibody levels that are below the limit ofdetection of this assay.The [employer] Alinity HIV Ag/Ab Combo assay result andsupplemental assay results should be interpreted inconjunction with the patient's clinical presentation,history and other laboratory results. If the results areinconsistent with clinical evidence, additional testing issuggested to confirm the result. Blood Venous blood specimen / Unknown 06/20/2023 11:34 AM EDT 06/20/2023 1:40 PM EDT us Hiwot Contreras MD LAB BLOOD ORDERABLES Fin al Result [facility] [address] [place] [phone] [phone] from Last 3 Months or Most Recently Relevant to Health Maintenance Insurance [address] [address] [employer] Care Teams Education Program Specialist Relationship Specialty Start Date End Date Mira Timmons MD [address] [place] [phone] PCP - General Internal Medicine 06/24/22
--- OUTSIDE RECORDS SUMMARY | 2024-10-26 16:52 | XMS_ITS ---
Author Name [facility] Organization Unknown Care Team Organization Name Specialty Phone Email Start Date End [facility]
--- OUTSIDE RECORDS SUMMARY | 2024-10-26 16:52 | XMS_ITS | Clinical Summary ---
Author Organization [facility] Address [address] [place] [address] Phone Care Team Providers Care Fuller Brush Man Name Role Phone Denise Apple MD Primary Care Provider [phone] Allergies No known active allergies Medications No known medications Active Problems No known active problems Social History Tobacco Use Types Packs/Day Years Used Date Smoking Tobacco: Never Assessed Sex and Gender Information Value Date Recorded Sex Assigned at Not on file Legal Sex Male 2:34 AM EST Gender Identity Not on file Sexual Orientation Not on file Obstetrics History Last Filed Vital Signs Vital Sign Reading Time Taken Comments Blood Pressure 115/82 07/16/2024 1:49 AM EDT Pulse 85 07/16/2024 1:49 AM EDT Temperature 36.9 C (98.5 F) 07/16/2024 1:49 AM EDT Respiratory Rate 16 07/16/2024 1:49 AM EDT Oxygen Saturation 96% 07/16/2024 1:49 AM EDT Inhaled Oxygen Concentration - - Weight 83.9 kg (185 lb) 07/16/2024 12:15 AM EDT Height 175.3 cm (5' 9 ) 07/16/2024 12:15 AM EDT Body Mass Index 27.32 07/16/2024 12:15 AM EDT Plan of Treatment Health Maintenance Due Date Last Done Comments HPV Vaccines (2 - Male 3-dose series) 08/20/2009 07/23/2009 Cholesterol Screening (Lipid Panel) 02/14/2022 Social Influencers of Health Screening 02/14/2022 Depression Screening 03/14/2024 Influenza Vaccine (#1) 2024 , 02/22/2013, 01/28/2011, Additional history exists DTaP,Tdap,and Td Vaccines (9 - Td or [...] patient's age to complete this topic Meningococcal ACWY Vaccine Aged Out N o longer eligible based on patient's age to complete this topic Meningococcal B Vaccine Aged Out No l onger eligible based on patient's age to complete this topic Pneumococcal Vaccine: Pediatrics (0 to 5 Years) and At-Risk Patients (6 to 49 Years) Aged Out No longer eligible based on patient's age to complete this topic RSV Immunization Patients Under 20 months Aged Out No longer eligible based on patient's age to complete this topic Insurance [place] - [place] [employer] Care Teams Fuller Brush Man Relationship Specialty Start Date End Date Denise Apple MD [address] [place] [phone] PCP - General Family Medicine 07/16/24
[2024-10-27 13:52] LABS: C. Trachomatis RNA TMA, Throat NOT DETECTED (NOT DETECTED); N. gonorrhoeae RNA TMA, Throat NOT DETECTED (NOT DETECTED)
== END 2024-10-26 16:50 | disposition home or self-care (01) ==
LOC: HO.HHCLNP 16:49
PROVIDERS: Visit Provider Student in an Organized Health Care Education/Training Program
DX: Z00.00 Encounter for general adult medical examination without abnormal findings (principal); Z11.3 Encounter for screening for infections with a predominantly sexual mode of transmission
CPT/HCPCS: 87491; 87591

== ENCOUNTER 2024-11-07 09:32 | Outpatient (REF) | payer MEDICAID, SELFPAY ==
--- OUTSIDE RECORDS SUMMARY | 2024-11-07 10:10 | XMS_ITS | Clinical Summary ---
Author Organization [facility] Address [address] [place] [address] Phone Care Team Providers Care Fresco Artist Name Role Phone Denise Apple MD Primary Care Provider +1- [phone] Allergies No known active allergies Medications No [...] [place] Care Teams Fresco Artist Relationship Specialty Start Date End Date Denise Apple MD [address] [place] [phone] PCP - General Family Medicine 07/16/24
--- OUTSIDE RECORDS SUMMARY | 2024-11-07 10:10 | XMS_ITS | Encounter Summary ---
Author Organization [employer] Address [address] [place] [address] 7 [place] [address] Care Team Providers Care Marriage Counselor Minister Name Role Phone Mira Timmons MD Primary Care Pro vider Encounter Details Date Type Department Care Team ([facility] st Contact Info) Description 10/29/2024 Results Follow-Up [facility] [address] [place] [address] Mira Timmons MD [address] [place] [address] Chlamydia/N. Gonorrhoeae RNA, TMA, Throat Social History Tobacco Use Types Packs/Day Years [...] as of this encounter Plan of Treatment Upcoming Encounters Date Type Department Care Team (Late st Contact Info) Description 11/14/2024 10:45 AM EDT Office Visit [facility] [address] [place] [address] Mira Timmons MD [address] [place] [address] 11/14/2024 11:15 AM EDT Clinical Support [facility] [address] [place] [address] Khushi Braxton, ROSS [address] [place] [address] documented as of this encounter Visit Diagnoses Not on filedocumented in this encounter Additional Health Concerns Assessment Noted Time PHQ-9 Depression Total Score: 0 10/27/19 25 9:16 AM EDT documented as of this encounter Care Teams Marriage Counselor Minister Relationship Specialty Start Date End Date Mira Timmons MD [address] [place] [phone] PCP - General Internal Medicine 06/24/22 documented as of this encounter
--- OUTSIDE RECORDS SUMMARY | 2024-11-07 10:10 | XMS_ITS | Clinical Summary ---
Author Organization [facility] Address [address] [place] [address] Care Team Providers Care Senior Sustainability Consultant Name Role Phone Unavailable Primary Care Provider Unavailabl e Source Comments PLEASE NOTE, if this patient is a minor, it may be UNLAWFUL to discuss sensitive information that is contained in these records (such as FAMILY PLANNING, MENTAL HEALTH or SUBSTANCE ABUSE) with the minor patient's parent or other person without the patient's specific authorization.[facility] Social History Tobacco Use Types Packs/Day Years Used Date Smoking Tobacco: Never Assessed Sex and Gender Information Value Date Recorded Sex Assigned at Male 11/02/2024 11:04 AM PDT Legal Sex Male 11:04 AM PDT Gender Identity Male 11/02/2024 11:04 AM PDT Sexual Orientation Not on file Plan of Treatment Upcoming Encounters Date Type Department Care Team (Late st Contact Info) Description 12/20/2024 4:00 PM EDT Behavioral Health Visit [facility] [address] [place] [address] Lisa Stahl APRN [address] [place] [address] Health Maintenance Due Date Last Done Comments Anxiety Screening 1990 Tobacco Screening 1990 Hypertension Screening (#1) 2008 Alcohol and Drug Screen 03/14/2024 Depression Annual Screen 03/14/2024 Imm-Influenza (#1) 2024 02/14/2024, 1 03/30/2010, 01/02/2008 Imm-DTaP/Tdap/Td (9 - Td or Tdap) 09/19/2033 09/20/2023, 06/30/2012, 04/09/2009, Additional history exists Imm-Hepatitis B Completed 01/12/1995, 03/1994, 07/12/1994 HIV Screening Completed 06/20/2023, 06/20/2023 Hepatitis C Screening Completed 11/09/2023 [id number] Completed 02/14/2024, 11/2023, 12/29/2020 Insurance [facility]
--- OUTSIDE RECORDS SUMMARY | 2024-11-07 10:10 | XMS_ITS | Encounter Summary ---
Author Organization [employer] Address [address] [place] [address] [place] [address] Care Team Providers Care Nut Roaster Helper Name Role Phone Mira Timmons MD Primary Care Pro vider Reason for Visit * Reason Comments Pre-visit Planning SDOH screening compl eted on 06/26/24 Encounter Details Date Type Department Care Team ([facility] st Contact Info) Description 11/07/2024 Patient Outreach [facility] [address] [place] [address] Mira Timmons MD [address] [place] [address] Pre-visit Planning (SDOH screening completed on 06/26/24 ) Social History Tobacco Use Types Packs/Day Years [...] AM EDT documented as of this encounter Progress Notes * Elizabeth Mullen - 11/07/2024 9:43 AM EDT CC Elizabeth Rebollar placed successful outbound call to patient for pre-visit planning. Patient name and confirmed. Patient confirms appt date and time, and has transportation arrangements. Biggest concern for appointment at this time is no concerns. Patient advised to bring to appointment a photo id and insurance card. Appropriate screenings completed in anticipation of appointment. documented in this encounter Plan of Treatment Upcoming Encounters Date Type Department Care Team (Late st Contact Info) Description 11/14/2024 10:45 AM EDT Office Visit [facility] [address] [place] [address] Mira Timmons MD [address] [place] [address] 11/14/2024 11:15 AM EDT Clinical Support [facility] [address] [place] [phone] Khushi Braxton, ROSS [address] [place] [address] documented as of this encounter Visit Diagnoses Not on filedocumented in this encounter Additional Health Concerns Assessment Noted Time PHQ-9 Depression Total Score: 0 10/27/19 25 9:16 AM EDT documented as of this encounter Care Teams Nut Roaster Helper Relationship Specialty Start Date End Date Mira Timmons MD [address] [place] [address] PCP - General Internal Medicine 06/24/22 documented as of this encounter
--- OUTSIDE RECORDS SUMMARY | 2024-11-07 10:10 | XMS_ITS | Clinical Summary ---
Author Organization [employer] Address [address] [place] [address] 7 [place] [address] Care Team Providers Care Sap Pi Architect Name Role Phone Mira Timmons MD Primary [...] patch 1 02/14/20 24 Active sodium chloride (Kingsley) 0.65 % nasal spray Administer 1 spray [...] Active Problems Problem Noted Date Diagnosed Date Obesity without serious comorbidity 10/27/2024 High risk sexual behavior 10/27/2024 Chlamydia infection 10/27/2024 Depression, unspecified 10/26/2024 Other specified problems rel ated to psychosocial circumstances 10/26/2024 Anxiety disorder, unspecified 10/26/2024 Neck pain 03/23/2024 Left elbow pain 09/20/2023 BRBPR (bright red blood per rectum) 09/20/2023 Constipation 09/20/2023 Poor concentration 09/20/2023 Health care maintenance 09/20/2023 Anxiety 08/31/2012 Tobacco dependence syndrome 08/31/2012 Resolved Problems Problem Noted Date Diagnosed Date Resolved Date Cocaine dependence without complication 03/19/2022 02/14/2024 Encounters * This document contains information received from the source organization and may not represent a complete record from that organization. Date Type Department Care Team Description 11/07/2024 Patient Outreach [address] [address] Mira Timmons MD Pre-visit Planning (SDOH screening completed on 06/26/24 ) 10/29/2024 Results Follow-Up [address] [address] Mira Timmons MD Chlamydia/N. Gonorrhoeae RNA, TMA, Throat 10/26/2024 9:30 AM EDT Office Visit [address] [address] Mira Timmons MD Health care maintenance (Primary Dx); Dietary counseling; Exercise counseling; Class 1 obesity without serious comorbidity with body mass index (BMI) of 31.0 to 31.9 in adult, unspecified obesity type; Constipation, unspecified constipation type; Tobacco dependence syndrome; High risk heterosexual behavior; Chlamydia infection 10/26/2024 Travel 10/25/[address] [address] Mira Timmons MD Chart Prep 10/19/2024 Patient Outreach [address] [address] Mira Timmons MD Pre-visit Planning ((Unable to reach for PVP screening and or LVM) to be completed in office) from Last 3 Months Immunizations Immunization Administration Dates Next Due DTaP 01/26/2001, 6,06/12/1994,1991,02/11/1991,1990 HPV 9-Valent 2023 HPV, Quadrivalent 07/23/2009 Hep B, Adolescent or Pediatric 01/12/1995,1994,07/12/1994 Hib (HbOC) 10/13/1995,02/11/1991,1990 IPV 10/13/1995, 5,02/11/1991,1990 Influenza, IIV3, injectable [...] Description 11/14/2024 10:45 AM EDT Office Visit [facility] [address] [place] [address] Mira Timmons MD [address] [place] [address] 11/14/2024 11:15 AM EDT Clinical Support [facility] [address] [place] [address] Khushi Braxton, ROSS [address] [place] [address] Health Maintenance Due Date Last Done Comments [...] Procedure Name Priority Date/Time Associated Diagnosis Comments CHLAMYDIA/N. GONORRHOEAE RNA, TMA, THROAT Routine 10/26/2024 10:07 AM EDT Health care maintenance HEPATITIS C AB W/REFL TO HCV RNA, QN, PCR Routine 11/09/2023 10:10 AM EDT Annual physical exam HIV 1/2 ANTIGEN/ANTIBODY, FOURTH GENERATION W/RFL Routine 06/20/2023 11:34 AM EDT Lymphadenopathy of head and neck from Last 3 Months or Most Recently Relevant to Health Maintenance Results * Chlamydia/N. Gonorrhoeae RNA, TMA, Throat (10/26/2024 10:07 AM EDT) Pathologist [facility] C. Trachomatis RNA TMA, Throat NOT DETECTED NOT DETECTED [facility] N. gonorrhoeae RNA TMA, Throat NOT DETECTED NOT DETECTED [facility] Swab Structure of anterior portion of neck / Unknown 10/26/2024 10:07 AM EDT 10/26/2024 4:51 PM EDT Mira Britton MD LAB MICROBIOLOGY - GENERAL ORDERABLES Final Result Performing Organization Address [facility]/ZIP Co de Phone Number [facility] [address] [place] [phone] * Hepatitis C Antibody with Reflex to HCV, RNA, Quantitative, Real-Time PCR (11/09/2023 10:10 AM EDT) Pathologist [facility] Hepatitis C Antibody Nonreactive Nonreactive [facility] Comment:Antibodies to HCV no t detected; does not exclude early acuteHCV infection. Blood Venous blood specimen / Unknown 11/09/2023 10:10 AM EDT 11/09/2023 11:04 AM EDT Mira Britton MD LAB BLOOD ORDERAB LES Final Result Performing Organization Address [facility]/ZIP Co de Phone Number [facility] [address] [place] [phone] * HIV-1/2 Antigen and Antibodies, Fourth Generation, with Reflexes (06/20/2023 11:34 AM EDT) HIV AB/AG Nonreactive Nonreactive [facility] Comment:HIV-1 p24 Ag and/or HIV-1/HIV-2 Ab not detected.A test result that is nonreactive does not exclude thepossibility of exposure to or infection with HIV-1 and/orHIV-2. Nonreactive results in this assay for individualswith prior exposure to HIV-1 and/or HIV-2 may be due toantigen and antibody levels that are below the limit ofdetection of this assay.The [employer] HIV Ag/Ab Combo assay result andsupplemental assay results should be interpreted inconjunction with the patient's clinical presentation,history and other laboratory results. If the results areinconsistent with clinical evidence, additional testing issuggested to confirm the result. Blood Venous blood specimen / Unknown 06/20/2023 11:34 AM EDT 06/20/2023 1:40 PM EDT Hiwot Contreras MD LAB BLOOD ORDERABLES Fin al Result [facility] [address] [place] [phone] [phone] from Last 3 Months or Most Recently Relevant to Health Maintenance Insurance [employer] Care Teams Sap Pi Architect Relationship Specialty Start Date End Date Mira Timmons MD [address] [place] [phone] PCP - General Internal Medicine 06/24/22
--- OUTSIDE RECORDS SUMMARY | 2024-11-07 10:10 | XMS_ITS | Encounter Summary ---
Author Organization [employer] Address [address] [place] [address] 7 [place] [address] Care Team Providers Care Data Processing Auditor Name Role Phone Mira Timmons MD Primary Care Pro vider Reason for Visit * Reason Onset Date Comments Nurse Triage 02/13/2024 Encounter Details Date Type Department Care Team ([facility] st Contact Info) Description 02/13/2024 Telephone [facility] [address] [place], [place] [phone] Mira Timmons MD [address] [place] [address] Nurse Triage Social History Tobacco Use Types [...] become worse * Telephone Encounter - Constance Palacios - 02/13/2024 10:32 AM EST Symptom: Sinus Symptoms Outcome: Schedule an urgent appointment (within 1 hour) or talk to a nurse or provider soon Reason:headache The caller accepted this outcome. documented in this encounter Plan of Treatment Upcoming Encounters Date Type Department Care Team (Late st Contact Info) Description 11/14/2024 10:45 AM EDT Office Visit [facility] [address] [place] [address] Mira Timmons MD [address] [place] [address] 11/14/2024 11:15 AM EDT Clinical Support [facility] [address] [place] [address] Khushi Braxton, ROSS [address] [place] [address] documented as of this encounter Visit Diagnoses Not on filedocumented in this encounter Additional Health Concerns Assessment Noted Time PHQ-9 Depression Total Score: 7 09/20/19 24 10:06 AM EDT documented as of this encounter Care Teams Data Processing Auditor Relationship Specialty Start Date End Date Mira Timmons MD [address] [place] [phone] PCP - General Internal Medicine 06/24/22 documented as of this encounter
[2024-11-07 11:12] LABS: MANUAL DIFF FLAG NO
[2024-11-07 11:15] LABS: Hematocrit 44.1 % (42.0-52.0); Hemoglobin 15.7 g/dl (14.0-18.0); Imm Gran Abs Auto 0.02 X10*3/uL (0.00-0.03); Imm Gran Pct Auto 0.3 % (0.0-0.4); Lymphocytes Absolute Auto 3.0 X10*3/uL (1.2-4.9); Mean Corpuscular HGB Conc 35.6 g/dl (31.0-36.0); Mean Corpuscular Hemoglobin 30.5 pg (27.0-33.0); Mean Corpuscular Volume 85.8 fL (80.0-98.0); NRBC Abs Auto 0.000 X10*3/uL (0.0-0.012); NRBC Pct Auto 0.0 /100WBC (0.0-0.2); Platelet Count 286 X10*3/uL (160-400); Red Blood Count 5.14 X10*6/uL (4.60-5.80); White Blood Count 6.8 X10*3/uL (4.8-10.8)
[2024-11-07 11:49] LABS: Hemoglobin A1C 159.3671 umol/L; Total Hemoglobin (HGBA1C) 4070.7176 umol/L
[2024-11-07 12:09] LABS: Alanine Aminotransferase 110 U/L (0-40); Albumin Level 4.7 g/dL (3.5-5.0); Alkaline Phosphatase 79 U/L (39-117); Anion Gap 12 (12-20); Aspartate Amino Transferase 56 U/L (5-37); Blood Urea Nitrogen 16 mg/dL (9-16); Calcium 9.3 mg/dL (8.4-10.2); Carbon Dioxide 26 mmol/L (22-29); Chloride 104 mmol/L (96-108); Cholesterol 191 mg/dL (<200); Estimated Glomerular Filt Rate > 60; HDL Cholesterol 44 mg/dL (>40); Potassium 4.1 mmol/L (3.3-5.1); Sodium 138 mmol/L (135-145); Total Protein 7.2 g/dL (6.5-8.0); Triglycerides 229 mg/dL (<150)
[2024-11-08 03:40] LABS: Syphilis Screen Nonreactive (Nonreactive)
[2024-11-08 04:02] LABS: HBS Num1 294.73 mIU/mL (0-7.99); HBc Num1 0.10 S/CO (0.00-0.79); HBsAGNum1 0.44 S/CO (0.00-0.99); HIV Num 1 0.06 S/CO (0.00-0.99); Hepatitis B Surface Antigen Negative (Negative); ~HepC Num1 0.09 S/CO (0.00-0.79); ~Hepatitis B Surface Antibody REACTIVE (Nonreactive); ~Hepatitis C Antibody Nonreactive (Nonreactive)
[2024-11-10 22:38] LABS: VITAMIN D (1,25 OH) D3 37 pg/mL; Vit D (1,25-Dihydroxy) Total 37 pg/mL (18-72); Vitamin D (1,25 OH) D2 <8 pg/mL
== END 2024-11-07 09:33 | disposition home or self-care (01) ==
LOC: HO.HHCL 09:32
PROVIDERS: PCP Student in an Organized Health Care Education/Training Program; Visit Provider Student in an Organized Health Care Education/Training Program
DX: Z13.89 Encounter for screening for other disorder (principal)
CPT/HCPCS: 80053; 80061; 82652; 83036; 84443; 85025; 86704; 86706; 86780; 86803; 87340; 87389

== ENCOUNTER 2024-11-14 11:37 | Outpatient (REF) | payer MEDICAID, SELFPAY ==
[2024-11-14 13:20] LABS: MANUAL DIFF FLAG NO
[2024-11-14 13:26] LABS: Hematocrit 44.0 % (42.0-52.0); Hemoglobin 15.4 g/dl (14.0-18.0); Imm Gran Abs Auto 0.03 X10*3/uL (0.00-0.03); Imm Gran Pct Auto 0.5 % (0.0-0.4); Lymphocytes Absolute Auto 2.8 X10*3/uL (1.2-4.9); Mean Corpuscular HGB Conc 35.0 g/dl (31.0-36.0); Mean Corpuscular Hemoglobin 29.8 pg (27.0-33.0); Mean Corpuscular Volume 85.1 fL (80.0-98.0); NRBC Abs Auto 0.000 X10*3/uL (0.0-0.012); NRBC Pct Auto 0.0 /100WBC (0.0-0.2); Platelet Count 285 X10*3/uL (160-400); Red Blood Count 5.17 X10*6/uL (4.60-5.80); White Blood Count 6.4 X10*3/uL (4.8-10.8)
[2024-11-14 14:11] LABS: Alanine Aminotransferase 90 U/L (0-40); Albumin Level 4.7 g/dL (3.5-5.0); Alkaline Phosphatase 73 U/L (39-117); Anion Gap 12 (12-20); Aspartate Amino Transferase 52 U/L (5-37); Blood Urea Nitrogen 14 mg/dL (9-16); Calcium 8.9 mg/dL (8.4-10.2); Carbon Dioxide 26 mmol/L (22-29); Chloride 105 mmol/L (96-108); Estimated Glomerular Filt Rate > 60; Potassium 4.0 mmol/L (3.3-5.1); Sodium 139 mmol/L (135-145); Total Protein 7.1 g/dL (6.5-8.0)
[2024-11-14 17:54] LABS: CT PCR Urine NOT DETECTED (Not Detect.); NG PCR Urine NOT DETECTED (Not Detect.)
[2024-11-15 08:10] LABS: Syphilis Screen Nonreactive (Nonreactive)
[2024-11-15 12:39] LABS: HIV RNA PCR Qn Copies NOT DETECTED copies/mL (NOT DETECTED); HIV RNA PCR Qn Log Copies NOT DETECTED (NOT DETECTED)
[2024-11-16 13:54] LABS: HCV Log PCR <1.18 NOT DETECTED Log IU/mL (NOT DETECTED); HepC Viral Load <15 NOT DETECTED IU/mL (NOT DETECTED)
== END 2024-11-14 11:38 | disposition home or self-care (01) ==
LOC: HO.HHCL 11:37
PROVIDERS: PCP Student in an Organized Health Care Education/Training Program; Visit Provider Student in an Organized Health Care Education/Training Program
DX: Z11.4 Encounter for screening for human immunodeficiency virus [HIV] (principal); Z11.3 Encounter for screening for infections with a predominantly sexual mode of transmission; Z11.59 Encounter for screening for other viral diseases; Z11.8 Encounter for screening for other infectious and parasitic diseases; Z72.51 High risk heterosexual behavior
CPT/HCPCS: 36415; 80053; 85025; 86780; 87491; 87522; 87536; 87591

== ENCOUNTER 2025-01-14 14:44 | Outpatient (AMB) | payer MEDICAID, SELFPAY ==
[2025-01-14 14:50] VITALS: BMI 27.9
--- NOTE | 2025-01-14 14:50 | A.OFFVIS_ITS ---
Vital Signs 01/14/25 14:50 Height 5 ft 9 in Weight 189 lb BMI 27.9 Intake Visit Reasons: OV: left olecranon bursitis Intake Note: Arturo 34 yr old right hand dominant male presents today for his follow up visit for his Olecranon bursitis of left elbow/. He was last seen with Dr Page for his MRI review and was told to follow up in a year or sooner if anything changes. Today patient states he has resume the gym and is feeling discomfort, pain and increase in size of mass as well. States its tender to touch and feels as if he has more than 1 mass. He is also having numbness and tingling mainly at night time in bilateral hand mainly his left hand. Allergies No Known Allergies (No Known Allergies*) Allergy (Unverified 01/14/25 14:56) HPI HPI OV: left olecranon bursitis: Details: Arturo 34 yr old right hand dominant male presents today for his follow up visit for his Olecranon bursitis of left elbow/. He was last seen with Dr Page for his MRI review and was told to follow up in a year or sooner if anything changes. Today patient states he has resume the gym and is feeling discomfort, pain and increase in size of mass as well. States its tender to touch and feels as if he has more than 1 mass. He is also having numbness and tingling mainly at night time in bilateral hand mainly his left hand. 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 Review of Systems Const All systems reviewed & are unremarkable except as noted in HPI and below Physical Exam Vital Signs: BMI result Body Mass Index 27.9 Extrem Other: On inspection, there is a focal area of enlargement on the patient's L elbow, proximal to the olecranon process No erythema or ecchymosis noted No lacerations, abrasions, open areas No evidence of infection There is a firm, slightly mobile mass noted to palpation of the patient's L arm, just proximal to the olecranon process of the L elbow that has larger than last evaluation Mild tenderness to palpation of this mass Patient is able to flex the elbow to approximately 140 degrees and extend to 0 degrees, but reports some discomfort when doing so Pronation and supination full and intact Assessment & Plan Assessment & Plan (1) Mass of left elbow: Code(s): R22.32 - Localized swelling, mass and lump, left upper limb Category: Medical Plan 1. Mass of left elbow and forearm Case was discussed with Dr. Page, and a collaborative treatment plan was formed: At this time, MRI is ordered to assess if there has been any progression or growth of the masses in the left elbow However, patient is educated that if these masses do require removal, we will likely have to refer him to a different orthopedic office In the meantime, patient is educated on conservative pain management measures Patient understands this and is amenable to this plan Follow-up after MRI, sooner with any acute concerns Orders: Orders MR elbow LT wo/w con 01/14/25 R22.32 - Localized swelling, mass and lump, left upper limb Coding Level of Care Code Est Pt Level 3 (88995) Diagnoses Mass of left elbow R22.32
== END 2025-01-14 15:07 | disposition home or self-care (01) ==
LOC: HO.HOS 14:45
PROVIDERS: PCP Student in an Organized Health Care Education/Training Program
DX: R22.32 Localized swelling, mass and lump, left upper limb (principal)
CPT/HCPCS: 99213

== ENCOUNTER → 2025-01-14 14:44 | Outpatient (BNVA) | payer MEDICAID, SELFPAY | PROVIDERS: PCP Student in an Organized Health Care Education/Training Program | DX: R22.32 Localized swelling, mass and lump, left upper limb (principal); R20.0 Anesthesia of skin; R20.2 Paresthesia of skin | CPT/HCPCS: 99212 ==

== ENCOUNTER 2025-01-30 09:22 | Outpatient (REF) | payer MEDICAID, SELFPAY ==
--- NOTE | ~2025-01-30 | US_ITS ---
CLINICAL HISTORY: ELEVATED LFTS US abdomen complete Comparison: None provided Findings: The visualized pancreas is normal, tail is obscured by bowel gas. The visualized aorta and inferior vena cava are normal caliber. The liver is normal in size, right lobe length is 14.2 cm. Normal in echogenicity, no discrete lesion is visualized in the imaged liver. No intrahepatic bile duct dilatation. The common duct is 4 mm in diameter. The gallbladder is normal. Negative sonographic Bañuelos sign. The main portal vein is patent with antegrade flow. The right kidney is normal, 10.6 cm in length. The left kidney is normal, 11.5 cm in length. The spleen is normal, 9.9 cm in length. No free fluid in the abdomen. Impression: Normal exam. No sonographic finding to account for elevated LFT. This document has been electronically signed by: Ladonna Pringle MD on 01/30/2025 15:24:44
--- OUTSIDE RECORDS SUMMARY | 2025-01-30 17:16 | XMS_ITS | Encounter Summary ---
Author Organization [employer] Address [address] [place] [address] 7 [place] [address] Care Team Providers Care Medical Customer Service Representative Name Role Phone Mira Timmons MD Primary Care Pro vider Reason for Visit * Reason Onset Date Comments Nurse Triage 02/13/2024 Encounter Details Date Type Department Care Team ([facility] st Contact Info) Description 02/13/2024 Telephone [facility] [address] [place], [place] [phone] Mira Timmons MD [address] [place] [address] Nurse Triage Social History Tobacco Use Types [...] Care Team (Late st Contact Info) Description 03/19/2025 3:00 PM EST Clinical Support [facility] DIABETES/NUTRITION [address] [place], [place] [phone] Arielle Cid RD [address] [place], [place] [phone] documented as of this encounter Visit Diagnoses Not on filedocumented in this encounter Additional Health Concerns Assessment Noted Time PHQ-9 Depression Total Score: 7 09/20/19 24 10:06 AM EDT documented as of this encounter Care Teams Medical Customer Service Representative Relationship Specialty Start Date End Date Mira Timmons MD [address] [place], [place] [phone] PCP - General Internal Medicine 06/24/22 documented as of this encounter
--- OUTSIDE RECORDS SUMMARY | 2025-01-30 17:16 | XMS_ITS | Data Portability ---
Author Organization [employer] [id number] Address [address] [place] [address] Assessment No assessment recorded. Plan of Treatment [...] or 10 panel Template completed JIMMY Greenberg [employer] 02/12/2022 12:44:29 Imaging Results None recorded. Procedure [...] Diagnosis SNOMED-CT Code Diagnosis ICD10 Code Diagnosis IMO Codes Diagnosis Note [id number] [address] [place] [address] 01/08/2021 08:59:37 01/08/2021 10:46:31 [id number] [address] [place] [address] 09/07/2018 17:27:55 09/07/2018 18:14:03 [id number] BANDAR EDUARDO MD [address] [place] [address] 02/12/2022 11:35:39 02/12/2022 12:56:35 Drug of abuse screen [id number] Z02.83 Health Concerns Section Related Observation LastModified by Organization Detai ls LastModified Time None Recorded Concern Status LastModified by Organization Details LastModified Time None Recorded Advance Directives Directive None Recorded Payers Insurance Date Sequence Insurance Name Policy Number Policy Waters Covered Member ID Waters Member ID Guarantor Name 02/12/2022 1 [facility] [employer] - HEALTH NET PLAN (MEDICAID HMO) [id number] Arturojesus alberto Aponteoja [id number] Arturo Thomas 02/12/2022 [employer] OTHER En rique Thomas
--- OUTSIDE RECORDS SUMMARY | 2025-01-30 17:16 | XMS_ITS | Clinical Summary ---
Author Organization [facility] Address [address] [place] [address] Phone Care Team Providers Care Rug Frame Mounter Name Role Phone Denise Apple MD Primary Care Provider +1- [phone] Allergies No known active allergies Medications No [...] of Health Screening 02/14/2022 Depression Screening 03/14/2024 COVID-19 Vaccine ( season) 2024 02/14/2024, 09/20/2023, 12/29/2020 Influenza Vaccine (#1) 2024 , 02/22/2013, 01/28/2011, Additional history exists DTaP,Tdap,and Td Vaccines (9 - Td or Tdap) 09/19/2033 09/20/2023, 06/30/2012, 04/09/2009, Additional history exists RSV Immunization Adult Patients (1 - 1-dose 75+ series) 2065 MMR Vaccines Completed 07/12/1993, 03/14/1992 Hepatitis B Vaccines Completed 01/12/1995, 09/11/1994, 07/12/1994 HIB Vaccines Completed 10/13/1995, 03/1990, 1990 IPV Vaccines Completed 10/13/1995, 03/1994, 02/11/1991, Additional history exists Varicella Vaccines Aged Out 05/08/2003 No longer eligible based on patient's age to complete this topic HIV Screening Completed 06/20/2023 Hepatitis C Screening Completed 11/09/2023 Hepatitis A Vaccines Aged Out No long [...] complete this topic [place] Care Teams Rug Frame Mounter Relationship Specialty Start Date End Date Zechariah, MD Denise [address] [place] [phone] PCP - General Family Medicine 07/16/24
--- OUTSIDE RECORDS SUMMARY | 2025-01-30 17:16 | XMS_ITS | Clinical Summary ---
Author Organization [employer] Address [address] [place] [address] 7 [place] [address] Care Team Providers Care Newsperson Name Role Phone Mira Timmons MD Primary [...] 30 patch 1 01/19/20 24 Active nicotine (Nicoderm, Step 1) 21 MG/24HR patchIndicati ons:Nicotine Dependence Place 1 patch on the skin 1 (one) time each day at the same time. 30 patch 1 10/27/19 25 Active nicotine polacrilex (Commit) 4 MG lozenge Dissolve 1 lozenge (4 mg) in the mouth every 2 (two) hours if needed for smoking cessation. 100 lozenge 1 10/27/19 25 Active Cabotegravir ER (Apretude) 600 MG/3ML Suspension Extended Release Inject 600 mg into the muscle every 30 (thirty) days. Ventrogluteal inj, monthly next dose and then every 2 months 3 mL 1 11/10/19 25 Active sodium chloride (Lynn) 0.65 % nasal spray Administer 1 spray into each nostril if needed for congestion or rhinitis. 15 mL 2 11/15/19 25 026 Active nicotine (Nicoderm CQ) 14 MG/24HR patch Place 1 patch on the skin 1 (one) time each day at the same time. 42 patch 1 11/15/19 25 Active doxycycline (Vibra-Tabs) 100 MG tablet Take 2 tablets (200 mg) by mouth if needed each day (high risk sexual encounter). Take with a full glass of water and do not lie down for at least 30 minutes after.Take 200 mg ( 2 tab of 100 mg ) at once within 3 days of high risk sexual encounter 28 tablet 2 11/15/19 25 025 Active emtricitabine -tenofovir AF (Descovy) 200-25 MG tablet Take 1 tablet by mouth Once per day. 30 tablet 2 11/15/19 25 Active Diclofenac Sodium 1 % gelIndication s:Neck pain APPLY 1 GRAM TOPICALLY IN THE MORNING, AT NOON, AND AT BEDTIME NEEDED FOR PAIN 100 g 1 11/16/19 25 Active GaviLAX 17 GM/SCOOP powder TAKE 17 G BY MOUTH IF NEEDED EACH DAY (CONSTIPATION). 510 g 1 11/23/19 25 Active docusate sodium (Colace) 100 MG capsule TAKE 1 CAPSULE BY MOUTH TWICE A DAY NEEDED 180 capsule 1 01/23/20 25 Active docusate sodium (Colace) 100 MG capsule Take 1 tab po bid prn constipation 60 capsule 3 10/27/19 25 025 Discontinued Active Problems Problem Noted Date Diagnosed Date Prediabetes 11/14/2024 Obesity without serious comorbidity 10/27/2024 High risk sexual behavior 10/27/2024 Depression, unspecified 10/26/2024 Other specified problems rel ated to psychosocial circumstances 10/26/2024 Anxiety disorder, unspecified 10/26/2024 Neck pain 03/23/2024 Left elbow pain 09/20/2023 BRBPR (bright red blood per rectum) 09/20/2023 Constipation 09/20/2023 Poor concentration 09/20/2023 Health care maintenance 09/20/2023 Anxiety 08/31/2012 Tobacco dependence syndrome 08/31/2012 Resolved Problems Problem Noted Date Diagnosed Date Resolved Date Chlamydia infection 10/27/2024 11/15/19 25 Cocaine dependence without c omplication ([facility]) 03/19/2022 02/14/2024 Encounters * This document contains information received from the source organization and may not represent a complete record from that organization. Date Type Department Care Team Description 01/22/2025 3:00 PM EST Nutrition [facility]/NUTRITION [address] [place], [place] [address] [address] Class 1 obesity without serious comorbidity with body mass index (BMI) of 31.0 to 31.9 in adult, unspecified obesity type 01/22/2025 Travel 01/21/2025 Refill [facility] [address] [place] [phone] Mira Timmons MD 01/07/2025 Telephone [facility] [address] [place] [phone] Mira Timmons MD philip recall 12/13/2024 Telephone [facility] [address] [place] [phone] Nutrition referral 12/04/2024 Telephone [facility] [address] [place] [phone] Mira Timmons MD Appointment Request 11/22/2024 Refill [facility] [address] [place] [phone] Mira Timmons MD 11/15/2024 Refill [facility] [address] [place] [phone] Carrie Victoria DO Neck pain 11/14/2024 10:45 AM EDT Office Visit [facility] [address] [place] [phone] Mira Timmons MD Class 1 obesity without serious comorbidity with body mass index (BMI) of 31.0 to 31.9 in adult, unspecified obesity type (Primary Dx); High risk heterosexual behavior; Elevated LFTs; Constipation, unspecified constipation type; Health care maintenance; Poor concentration; Depression, unspecified depression type; Tobacco dependence syndrome; Prediabetes 11/14/2024 Orders Only [facility] [address] [place] [phone] Mira Timmons MD 11/14/2024 Orders Only [address] [address] Mira Timmons MD 11/14/2024 Travel 11/13/[address] [address] Mira Timmons MD CHART PREP 11/09/2024 Orders Only [address] [address] Mira Timmons MD 11/09/[address] [address] [place], [place] On pre-exposure prophylaxis for HIV (Primary Dx) 11/07/[address] [address] Mira Timmons MD test not perform 11/07/2024 Orders Only [address] [address] Mira Timmons MD 11/07/2024 Patient Outreach [address] [address] Mira Timmons MD Pre-visit Planning ([facility] screening completed on 06/26/24 ) from Last 3 Months Immunizations Immunization Administration Dates Next Due DTaP 01/26/2001, 6,06/12/1994,1991,02/11/1991,1990 HPV 9-Valent 2023 HPV, Quadrivalent 07/23/2009 Hep B, Adolescent or Pediatric 01/12/1995,1994,07/12/1994 Hib (HbOC) 10/13/1995,02/11/1991,1990 IPV 10/13/1995, 5,02/11/1991,1990 Influenza, IIV3, injectable 01/28/2011, 8 Influenza, intradermal, quad rivalent, preservative free 02/22/2013 Influenza, seasonal, injecta ble, preservative free 02/14/2024 MMR 07/12/1993,03/14/1992 Moderna Covid-19 Vaccine 12+ 12/29/2020 Pfizer Covid-19 Vaccine 12+ 02/14/2024, Tdap 09/20/2023,06/30/2012,04/09/2009 Varicella 05/08/2003 Social History Tobacco Use Types Packs/Day Years Used Date Smoking Tobacco: Every Day Cigarettes Passive Smoke Exposure: Current Smokeless Tobacco: Never Comments:Started smoking at 12 y of age so smoking now for 21 years , max 1 PQT a day Alcohol Use Standard Drinks/Week Comments Not Currently 0 (1 standard drink = 0.6 oz pur e alcohol) Depression Answer Date Recorded Patient Health Questionnaire-9 Score 7 11/15/2024 Patient Health Questionnaire-9 Score 7 11/15/2024 Last PHQ-9: Questionnaire Data Not on file 0 11/15/2024 Housing Stability Answer Date Recorded What is [...] Answer Date Recorded Patient Health Questionnaire-2 Score 2 11/15/2024 Internet Access Answer Date Recorded Internet Access [...] Sign Reading Time Taken Comments Blood Pressure 134/70 11/14/2024 10:32 AM EDT Pulse 71 11/14/2024 10:32 AM EDT Temperature 36.2 C (97.1 F) 11/14/2024 10:32 AM EDT Respiratory Rate 20 11/14/2024 10:32 AM EDT Oxygen Saturation 97% 11/14/2024 10:32 AM EDT Inhaled Oxygen Concentration - - Weight 95.7 kg (211 lb) 01/24/2025 9:56 AM EST Height 175.3 cm (5' 9 ) 01/24/2025 9:56 AM EST Body Mass Index 31.16 01/24/2025 9:56 AM EST Plan of Treatment Upcoming Encounters Date Type Department Care Team (Late st Contact Info) Description 03/19/2025 3:00 PM EST Clinical Support [facility] [address] [place] [address] [place] [address] Health Maintenance Due Date Last Done Comments Family Planning (PISQ) 2005 Pneumococcal Vaccine: Pediatrics (0 to 5 Years) and At-Risk Patients (6 to 49) Years (1 of 2 - PCV) 2009 HPV Vaccines (3 - Male 3-dose series) 02/02/2024 2023, 07/23/2009 COVID-19 Vaccine ( season) 2024 02/14/2024, 09/20/2023, 12/29/2020 Influenza Vaccine (#1) 2024 , 02/22/2013, 01/28/2011, Additional history exists Alcohol/Substance Use Screening 10/26/2025 10/26/2024 Disability Screening 10/26/2025 10/26/2024 SDOH Screening 10/26/2025 10/26/2024 Diabetes: Hemoglobin A1C 11/07/2025 11/07/2024, 08/2 10/2023 Tobacco Screening 11/14/2025 11/14/2024 Depression Screening 11/15/2025 11/15/2024, 11/16/19 25 Lipid Panel 11/07/2029 11/07/2024 DTaP/Tdap/Td Vaccines (9 - Td or Tdap) 09/19/2033 09/20/2023, 06/30/2012, 04/09/2009, Additional history exists Zoster Vaccines (1 of 2) 2040 RSV Patients and Patients Aged 60 years or older (1 - 1-dose 75+ series) 2065 Hepatitis B Vaccines Completed 01/12/1995, 09/11/1994, 07/12/1994 HIB Vaccines Completed 10/13/1995, 03/1990, 1990 IPV Vaccines Completed 10/13/1995, 03/1994, 02/11/1991, Additional history exists HIV Screening Completed 11/14/2024, 10/13, 06/20/2023 Hepatitis C Screening Completed 11/14/2024 , 11/07/2024, 11/09/2023 Hepatitis A Vaccines Aged Out No [...] Procedure Name Priority Date/Time Associated Diagnosis Comments US ABDOMEN COMPLETE Routine 01/30/2025 3 :24 PM EST Elevated LFTs HEPATITIS C VIRAL RNA, QUANTITATIVE, REAL-TIME PCR Routine 11/14/2024 12:00 PM EDT HIV 1 RNA, QUANTITATIVE REAL TIME PCR Routine 11/14/2024 12:00 PM EDT SYPHILIS SCREEN Routine 11/14/2024 12:00 PM EDT CBC WITH AUTO DIFFERENTIAL Routine 11/14/2024 12:00 PM EDT COMPREHENSIVE METABOLIC PANEL Routine 11/14/2024 12:00 PM EDT Elevated LFTs CHLAMYDIA/TRICHOMONAS/ NEISSERIA GONORRHOEAE, PCR, URINE Routine 11/14/2024 11:10 AM EDT Health care maintenance VITAMIN D 1,25 DIHYDROXY Routine 11/07/2024 9:45 AM EDT CBC WITH AUTO DIFFERENTIAL Routine 11/07/2024 9:45 AM EDT TSH W/REFLEX TO FT4 Routine 11/07/2024 9 :45 AM EDT Health care maintenance SYPHILIS SCREEN Routine 11/07/2024 9:45 AM EDT Health care maintenance LIPID PANEL, STANDARD Routine 11/07/2024 9:45 AM EDT Health care maintenance HIV 1/2 ANTIGEN/ANTIBODY, FOURTH GENERATION W/RFL Routine 11/07/2024 9:45 AM EDT Health care maintenance HEPATITIS C AB W/REFL TO HCV RNA, QN, PCR Routine 11/07/2024 9:45 AM EDT Health care maintenance HEPATITIS B SURFACE ANTIGEN, EIA Routine 11/07/2024 9:45 AM EDT Health care maintenance HEPATITIS B SURFACE ANTIBODY, QUALITATIVE Routine 11/07/2024 9:45 AM EDT Health care maintenance HEPATITIS B CORE AB TOTAL Routine 11/07/2024 9:45 AM EDT Health care maintenance HEMOGLOBIN A1C Routine 11/07/2024 9:45 AM EDT Health care maintenance COMPREHENSIVE METABOLIC PANEL Routine 11/07/2024 9:45 AM EDT Health care maintenance from Last 3 Months Results * US Abdomen Complete (01/30/2025 3:24 PM EST) Anatomical Region Laterality Modality Abdomen Ultrasound 01/30/2025 3:24 PM EST Narrative 01/30/2025 3:25 PM EST [address] [address] Ultrasound Report Signed Patient: Arturo Burch MR #: [id number] : 1990 Acct:[id number] Age/Sex: 34 / M ADM Date: 01/30/25 Loc: HO.US Attending Dr: Mira Britton MD Ordering Physician: Mira Timmons MD Date of Service: 01/30/25 Procedure(s): US abdomen complete Accession Number(s): [id number] cc: Mira Timmons MD Reason for Exam: ELEVATED LFTS CLINICAL HISTORY: ELEVATED LFTS US abdomen complete Comparison: None provided Findings: The visualized pancreas is normal, tail is obscured by bowel gas. The visualized aorta and inferior vena cava are normal caliber. The liver is normal in size, right lobe length is 14.2 cm. Normal in echogenicity, no discrete lesion is visualized in the imaged liver. No intrahepatic bile duct dilatation. The common duct is 4 mm in diameter. The gallbladder is normal. Negative sonographic Bañuelos sign. The main portal vein is patent with antegrade flow. The right kidney is normal, 10.6 cm in length. The left kidney is normal, 11.5 cm in length. The spleen is normal, 9.9 cm in length. No free fluid in the abdomen. Impression: Normal exam. No sonographic finding to account for elevated LFT. This document has been electronically signed by: Ladonna Pringle MD on 01/30/2025 15:24:44 Dictated By: Ladonna Pringle MD Signed By: <Electronically signed by Ladonna Pringle MD in OV> 01/30/25 1525 DD/ 1524 TD/TT: 01/30/25 1524 Compliance Representative Dealer: Procedure Note Donotuseinterpreter, Image - 01/30/[address] [address] Ultrasound Report Signed Patient: Arturo BurchMR #: [id number] : 1990Acct:[id number] Age/Sex: 34 / MADM Date: 01/30/25 Loc: HO.US Attending Dr: Mira Britton MD Ordering Physician: Mira Timmons MD Date of Service: 01/30/25 Procedure(s): US abdomen complete Accession Number(s): [id number] cc: Mira Timmons MD Reason for Exam: ELEVATED LFTS CLINICAL HISTORY: ELEVATED LFTS US abdomen complete Comparison: None provided Findings: The visualized pancreas is normal, tail is obscured by bowel gas. The visualized aorta and inferior vena cava are normal caliber. The liver is normal in size, right lobe length is 14.2 cm. Normal in echogenicity, no discrete lesion is visualized in the imaged liver. No intrahepatic bile duct dilatation. The common duct is 4 mm in diameter. The gallbladder is normal. Negative sonographic Bañuelos sign. The main portal vein is patent with antegrade flow. The right kidney is normal, 10.6 cm in length. The left kidney is normal, 11.5 cm in length. The spleen is normal, 9.9 cm in length. No free fluid in the abdomen. Impression: Normal exam. No sonographic finding to account for elevated LFT. This document has been electronically signed by: Ladonna Pringle MD on 01/30/2025 15:24:44 Dictated By: Ladonna Pringle MD Signed By: <Electronically signed by Ladonna Pringle MD in OV> 01/30/25 1525 DD/ 1524 TD/TT: 01/30/25 1524 Compliance Representative Dealer: Mira Britton MD IMG US PROCEDURES Final Result * Syphilis Screen (11/14/2024 12:00 PM EDT) Only the most recent of2 resultswithin the time period is included. Syphilis Screen Nonreactive Nonreactive [facility] 11/14/2024 12:0 0 PM EDT 11/14/2024 1:21 PM EDT Mira Britton MD LAB BLOOD ORDERAB LES Final Result Performing Organization Address [facility]/ZIP Co de Phone Number [facility] [address] [place] [address] [phone] * Hepatitis C Viral RNA, Quantitative, Real-Time PCR (11/14/2024 12:00 PM EDT) [facility] Hepatitis C Viral Load <15 NOT DETECTED NOT DETECTED IU/mL [facility] HCV Log PCR <1.18 NOT DETECTED NOT DETECTED Log IU/mL [facility] Comment:For additional infor mation, please refer [email or web address].[email or web address]/faq/QQP83f0(This link is being provided for informational/educational purposes only.)THIS TEST WAS PERFORMED AT:[facility] [place] [phone] ARMENTA MD 11/14/2024 12:0 0 PM EDT 11/14/2024 1:21 PM EDT Mira Britton MD LAB BLOOD ORDERAB LES Final Result Performing Organization Address [facility] Co de Phone Number [facility] [address] [place] [address] [phone] * (ABNORMAL) CBC auto differential (11/14/2024 12:00 PM EDT) Only the most recent of2 resultswithin the time period is included. [facility] White Blood Count 6.4 4.8 - 10.8 X10*3/uL [facility] Red Blood Count 5.17 4.60 - 5.80 X10*6/uL [facility] Hemoglobin 15.4 14.0 - 18.0 g/dl [facility] Hematocrit 44.0 42.0 - 52.0 % [facility] Mean Corpuscular Volume 85.1 80.0 - 98.0 fL [facility] Mean Corpuscular Hemoglobin 29.8 27.0 - 33.0 pg [facility] Mean Corpuscular HGB Conc 35.0 31.0 - 36.0 g/dl [facility] Red Cell Distribution Width 12.8 11.0 - 16.0 % [facility] Platelet Count 285 160 - 400 X10*3/uL [facility] Mean Platelet Volume 10.4 9.4 - 12.4 fL [facility] Neutrophils Percent Auto 45.9 45 - 73 % [facility] Imm Gran Pct Auto 0.5(H) 0.0 - 0.4 % [facility] Lymphocytes Percent Auto 43.5(H) 20 - 40 % [facility] Monocytes Percent Auto 7.6 2 - 11 % [facility] Eosinophils Percent Auto 1.9 0 - 4 % [facility] Basophils Percent Auto 0.6 0 - 2 % [facility] NRBC Pct Auto 0.0 0.0 - 0.2 /100WBC [facility] Neutrophils Absolute Auto 2.9 2.0 - 8.3 x10*3/uL [facility] Imm Gran Abs Auto 0.03 0.00 - 0.03 X10*3/uL [facility] Lymphocytes Absolute Auto 2.8 1.2 - 4.9 X10*3/uL [facility] Monocytes Absolute Auto 0.5 0.1 - 1.2 X10*3/uL [facility] Eosinophils Absolute Auto 0.1 0.0 - 0.4 X10*3/uL [facility] Basophils Absolute Auto 0.0 0.0 - 0.2 X10*3/uL [facility] NRBC Abs Auto 0.000 0.0 - 0.012 X10*3/uL [facility] 11/14/2024 12:0 0 PM EDT 11/14/2024 1:16 PM EDT us Mira Britton MD LAB BLOOD ORDERAB LES Final Result [facility] [address] [place] [phone] * HIV-1 RNA, Quantitative, Real-Time PCR (11/14/2024 12:00 PM EDT) Pathologist [facility] HIV RNA PCR Qn Copies NOT DETECTED NOT DETECTED copies/mL [facility] HIV RNA PCR Qn Log Copies NOT DETECTED NOT DETECTED [facility] Comment:Result Units: Log co pies/mLThis test was performed using Real-Time Polymerase ChainReaction.Reportable Range: 20 copies/mL to 10,000,000 copies/mL(1.30 log copies/mL to 7.00 log copies/mL).THIS TEST WAS PERFORMED AT:[facility] [place] [phone] ARMENTA MD 11/14/2024 12:0 0 PM EDT 11/14/2024 1:21 PM EDT Mira Britton MD LAB BLOOD ORDERAB LES Final Result [facility] [address] [place] [address] [phone] * (ABNORMAL) Comprehensive Metabolic Panel (11/14/2024 12:00 PM EDT) Only the most recent of2 resultswithin the time period is included. [facility] Sodium 139 135 - 145 mmol/L [facility] Potassium 4.0 3.3 - 5.1 mmol/L [facility] Chloride 105 96 - 108 mmol/L [facility] Carbon Dioxide 26 22 - 29 mmol/L [facility] Anion Gap 12 12 - 20 [facility] Urea Nitrogen (BUN) 14 9 - 16 mg/dL [facility] Creatinine, Serum 0.83 0.5 - 1.4 mg/dL [facility] Estimated Glomerular Filt Rate >60 [facility] Comment:Chronic Kidney Disea se: Estimated GFR < 60 mL/min/1.14p7Eemuzi Kidney Disease: Estimated GFR < 15 mL/min/1.73m2 Glucose 97 60 - 115 mg/dL [facility] Calcium 8.9 8.4 - 10.2 mg/dL [facility] Bilirubin, Total 0.9 0.0 - 1.0 mg/dL [facility] Aspartate Amino Transferase 52(H) 5 - 37 U/L [facility] Alanine Aminotransferase 90(H) 0 - 40 U/L [facility] Total Protein 7.1 6.5 - 8.0 g/dL [facility] Albumin Level 4.7 3.5 - 5.0 g/dL [facility] Alkaline Phosphatase 73 39 - 117 U/L [facility] Blood Venous blood specimen / Unknown 11/14/2024 12:00 PM EDT 11/14/2024 1:21 PM EDT Mira Britton MD LAB BLOOD ORDERAB LES Final Result [facility] [address] [place] [phone] * Chlamydia/Trichomonas/Neisseria gonorrhoeae, PCR, Urine (11/14/2024 11:10 AM EDT) CT PCR, Urine NOT DETECTED Not Detect. [facility] Comment:A not detected test result does not exclude the possibilityof infection because test results can be affected byimproper specimen collection, concurrent antibiotic therapy,or the number of organisms in the specimen which may bebelow the sensitivity of the test. As with many diagnostictests, results from the Xpert CT/NG assay should beinterpreted in conjunction with other laboratory andclinical data available to the clinician.The Xpert CT/NG assay should not be used for the evaluationof suspected sexual abuse or for other medico-legalindications. Additional testing is recommended in anycircumstance when false positive or false negative resultscould lead to adverse medical, social or psychologicalconsequences. NG PCR, Urine NOT DETECTED Not Detect. [facility] Comment:A not detected test result does not exclude the possibilityof infection because test results can be affected byimproper specimen collection, concurrent antibiotic therapy,or the number of organisms in the specimen which may bebelow the sensitivity of the test. As with many diagnostictests, results from the Xpert CT/NG assay should beinterpreted in conjunction with other laboratory andclinical data available to the clinician.The Xpert CT/NG assay should not be used for the evaluationof suspected sexual abuse or for other medico-legalindications. Additional testing is recommended in anycircumstance when false positive or false negative resultscould lead to adverse medical, social or psychologicalconsequences. Urine (Urine, Random) 11/14/2024 11:10 AM EDT 11/14/2024 4:14 PM EDT Mira Britton MD LAB URINE ORDERAB LES Final Result Performing Organization Address [facility]/ZIP Co de Phone Number [facility] [address] [place] [phone] * TSH with Reflex to Free T4 (11/07/2024 9:45 AM EDT) TSH reflex Free T4 1.05 0.32 - 4.0 uIU/mL [facility] Blood 11/07/2024 9:45 AM EDT 11/07/2024 11:23 AM EDT Mira Britton MD LAB BLOOD ORDERAB LES Final Result Performing Organization Address [facility] Co de Phone Number [facility] [address] [place] [phone] * Hepatitis C Antibody with Reflex to HCV, RNA, Quantitative, Real-Time PCR (11/07/2024 9:45 AM EDT) Hepatitis C Antibody Nonreactive Nonreactive [facility] Comment:Antibodies to HCV no t detected; does not exclude early acuteHCV infection. Blood Venous blood specimen / Unknown 11/07/2024 9:45 AM EDT 11/07/2024 11:02 AM EDT Mira Britton MD LAB BLOOD ORDERAB LES Final Result Performing Organization Address City/[facility]/ZIP Co de Phone Number [facility] [address] [place] [phone] * Hepatitis B surface antigen, EIA (11/07/2024 9:45 AM EDT) Hepatitis B Surface Ag Negative Negative [facility] Blood Venous blood specimen / Unknown 11/07/2024 9:45 AM EDT 11/07/2024 11:02 AM EDT us Mira Britton MD LAB BLOOD ORDERAB LES Final Result Performing Organization Address City/[facility]/ZIP Co de Phone Number [facility] [address] [place] [phone] * Hepatitis B Core Antibody, Total (11/07/2024 9:45 AM EDT) Pathologist [facility] Hepatitis B Core Antibody Nonreactive Nonreactive [facility] Blood Venous blood specimen / Unknown 11/07/2024 9:45 AM EDT 11/07/2024 11:02 AM EDT us Mira Britton MD LAB BLOOD ORDERAB LES Final Result Performing Organization Address City/[facility]/ZIP Co de Phone Number [facility] [address] [place] [phone] * Vitamin D 1,25 dihydroxy (11/07/2024 9:45 AM EDT) Vit D (1,25-Dihydroxy) Total 37 18 - 72 pg/mL [facility] VITAMIN D (1,25 OH) D3 37 pg/mL [facility] Vitamin D (1,25 OH) D2 <8 pg/mL [facility] Comment:Vitamin D3, 1,25(OH) 2 indicates both endogenousproduction and supplementation. Vitamin D2, 1,25(OH)2is an indicator of exogenous sources, such as diet orsupplementation. Interpretation and therapy are basedon measurement of Vitamin D,1,25(OH)2, Total.This test was developed and its analyticalperformance characteristics have been determinedby [facility], [place], [place].It has not been cleared or approved by the FDA. Thisassay has been validated pursuant to the CLIAregulations and is used for clinical purposes.THIS TEST WAS PERFORMED AT:[employer] [id number] [place] [id number] REESE MD,PHD 11/07/2024 9:45 AM EDT 11/07/2024 11:23 AM EDT us Mira Britton MD LAB BLOOD ORDERAB LES Final Result [facility] [address] [place] [phone] * HIV-1/2 Antigen and Antibodies, Fourth Generation, with Reflexes (11/07/2024 9:45 AM EDT) [facility] HIV AB/AG Nonreactive Nonreactive [facility] Comment:HIV-1 p24 Ag and/or HIV-1/HIV-2 Ab not detected.A test result that is nonreactive does not exclude thepossibility of exposure to or infection with HIV-1 and/orHIV-2. Nonreactive results in this assay for individualswith prior exposure to HIV-1 and/or HIV-2 may be due toantigen and antibody levels that are below the limit ofdetection of this assay.The [employer] HIV Ag/Ab Combo assay result andsupplemental assay results should be interpreted inconjunction with the patient's clinical presentation,history and other laboratory results. If the results areinconsistent with clinical evidence, additional testing issuggested to confirm the result. Blood Venous blood specimen / Unknown 11/07/2024 9:45 AM EDT 11/07/2024 11:02 AM EDT us Mira Britton MD LAB BLOOD ORDERAB LES Final Result Performing Organization Address [facility]/ZIP Co de Phone Number [facility] [address] [place] [phone] * Hepatitis B Surface Antibody, Qualitative (11/07/2024 9:45 AM EDT) ~Hepatitis B Surface Antibody REACTIVE Nonreactive [facility] Comment:REACTIVE: > 11.99 mI U/mL Blood Venous blood specimen / Unknown 11/07/2024 9:45 AM EDT 11/07/2024 11:02 AM EDT us Mira Britton MD LAB BLOOD ORDERAB LES Final Result Performing Organization Address [facility] Co mn Phone Number [facility] [address] [place] [phone] * Hemoglobin A1c (11/07/2024 9:45 AM EDT) Hemoglobin A1c 5.7 <6.0 % [facility] Comment:Hemoglobin A1C Refer ence Range Adults: 4.8 - 6.0 % Non diabetic: < 6.0 % Goal: < 7.0 %Additional Action Suggested: > 8.0 %Note: Hemoglobin A1c results are invalid for patients with abnormal amounts of HbF. Blood transfusions may impact the HbA1c concentration in the patient sample. Estimated Average Glucose 117 mg/dL [facility] Comment:eAG = Estimated ave rage glucose which is %A1C expressed asaverage glucose, using the formula of the T6E-QddywfyTxlspyu Glucose study (ADAG), Diabetes Care, Vol.31,#8,Oct. 2007 Blood Venous blood specimen / Unknown 11/07/2024 9:45 AM EDT 11/07/2024 11:02 AM EDT us Mira Britton MD LAB BLOOD ORDERAB LES Final Result Performing Organization Address [facility] Co de Phone Number [facility] [address] [place] [phone] * (ABNORMAL) Lipid Panel, Standard (11/07/2024 9:45 AM EDT) Triglycerides 229(H) <150 mg/dL [facility] Comment:Slight Lipemia.Sanjeev able Triglyceride: less than 150 mg/dLBorderline High Triglyceride 150-199 mg/dLHigh Triglyceride: 200-499 mg/dLVery High Triglyceride: greater than or equal to 5OO mg/dL Cholesterol 191 <200 mg/dL [facility] Comment:Desirable Cholestero l: less than 200 mg/dLBorderline High Cholesterol: 200-239 mg/dLHigh Cholesterol: greater than 239 mg/dL LDL Cholesterol Calculated 102(H) <100 mg/dL [facility] Comment:Desirable LDL: less than 100 mg/dLNear Optimal/Above Optimal LDL: 110- 129 mg/dLBorderline High LDL: 130-159 mg/dLHigh LDL: 160-189 mg/dLVery High LDL: greater than or equal to 190 mg/dL HDL Cholesterol 44 >40 mg/dL [facility] Comment:Desirable HDL: great er than 40 mg/dL Note: This HDL assay may give artificially low results in patients with liver disease. Blood Venous blood specimen / Unknown 11/07/2024 9:45 AM EDT 11/07/2024 11:23 AM EDT us Mira Britton MD LAB BLOOD ORDERAB LES Final Result [facility] [address] [place] [phone] from Last 3 Months Insurance [facility] [employer] Care Teams Newsperson Relationship Specialty Start Date End Date Mira Timmons MD [address] [place] [phone] PCP - General Internal Medicine 06/24/22
--- OUTSIDE RECORDS SUMMARY | 2025-01-30 17:16 | XMS_ITS | Encounter Summary ---
Author Organization [employer] Address [address] [place] [address] [address] [place] [address] Care Team Providers Care Surveyor'S Assistant Name Role Phone Mira Timmons MD Primary Care Pro vider Reason for Visit * Reason Onset Date Comments Appointment Request 12/04/2024 Encounter Details Date Type Department Care Team ([facility] Contact Info) Description 12/04/2024 Telephone [facility] [address] [place], [place] [phone] Mira Timmons MD [address] [place] [address] Appointment Request Social History Tobacco Use Types Packs/Day Years [...] is your housing situation today? I have missymamadou caal 10/26/[address] you [...] encounter Miscellaneous Notes * Telephone Encounter - Leti Srivastava - 12/04/2024 11:00 AM EDT Tc from pt requesting a new pt appointment for nutrition Contact pt at [phone] documented in this encounter Plan of Treatment Upcoming Encounters Date Type Department Care Team (Late st Contact Info) Description 03/19/2025 3:00 PM EST Clinical Support [facility]/NUTRITION [address] [place] [phone] [place] [phone] documented as of this encounter Visit Diagnoses Not on filedocumented in this encounter Additional Health Concerns Assessment Noted Time PHQ-9 Depression Total Score: 7 11/16/19 25 3:04 PM EDT documented as of this encounter Care Teams Surveyor'S Assistant Relationship Specialty Start Date End Date Mira Timmons MD [address] [place] [address] PCP - General Internal Medicine 06/24/22 documented as of this encounter
== END 2025-01-30 09:23 | disposition home or self-care (01) ==
LOC: HO.US 09:22
PROVIDERS: PCP Student in an Organized Health Care Education/Training Program; Visit Provider Student in an Organized Health Care Education/Training Program
DX: R79.89 Other specified abnormal findings of blood chemistry (principal)
CPT/HCPCS: 76700

== ENCOUNTER → 2025-01-30 09:42 | Outpatient (BNV) | payer MEDICAID, SELFPAY | PROVIDERS: PCP Student in an Organized Health Care Education/Training Program; Visit Provider Radiology Diagnostic Radiology | DX: R94.5 Abnormal results of liver function studies (principal) | CPT/HCPCS: 76700 ==